=== PATIENT | female | born 1950 | race American Indian/Alaskan Native ===

== ENCOUNTER 2016-07-05 07:25 | Day surgery (SDC) | payer MEDICARE ==
[2016-07-05] MEDS ORDERED: ECOTRIN PO ONE (08:04)
[2016-07-05 08:29] LABS: Basophils % (Auto) 0.8 % (0.0-1.8); Eosinophils % (Auto) 2.2 % (0.0-4.3); Hematocrit 30.3 % (30.3-42.9); Hemoglobin 9.9 gm/dl (10.1-14.3); Mean Corpuscular HGB Conc 33 % (30-34); Mean Corpuscular Hemoglobin 29 pg (28-32); Mean Corpuscular Volume 89 fl (79-97); Platelet Count 231 K/mm3 (140-440); Red Blood Count 3.39 M/mm3 (3.65-5.03); White Blood Count 4.4 K/mm3 (4.5-11.0)
[2016-07-05 08:36] LABS: Red Cell Distribution Width 23.5 % (13.2-15.2)
[2016-07-05 08:38] LABS: INR 0.94 (0.87-1.13)
[2016-07-05 08:45] LABS: BUN/Creatinine Ratio 3.81; Calcium 8.7 mg/dL (8.4-10.2); Chloride 94.3 mmol/L (98-107); Potassium 4.2 mmol/L (3.6-5.0)
[2016-07-05] MEDS ORDERED: NACL 0.9% 500 ML 500 ML IV SCH (09:00)
[2016-07-05] MEDS ORDERED: VERSED ONE (09:03)
[2016-07-05] MEDS ORDERED: HEPARIN/NS 5000 UNIT/500ML(CATH LAB) 1,000 ML IR ONE (09:03)
[2016-07-05] MEDS ORDERED: SUBLIMAZE ONE (09:04)
[2016-07-05] MEDS ORDERED: XYLOCAINE 2% INFILTRATI ONE (09:04)
[2016-07-05] MEDS ORDERED: HEPARIN 10,000 UNITS/10 ML ONE (09:16)
[2016-07-05] MEDS ORDERED: CALAN ONE (09:16)
[2016-07-05] MEDS ORDERED: NITROGLYCERIN SYRINGE 3 ML ONE (09:17)
--- NOTE | 2016-07-05 09:44 | Short Stay Summary ---
Short Stay Documentation Date of service: 07/05/16 - History H&P: obtained from office - Allergies and Medications Current Medications: Allergies epoetin randi Allergy (Verified 07/05/16 08:45) Rash Home Medications Medication Instructions Recorded Confirmed Last Taken Type Aspirin [Ecotrin] 81 mg PO DAILY 07/06/13 07/05/16 07/04/16 History 81mg Insulin Glargine,Hum.rec.anlog 30 unit SQ QHS 07/06/13 07/05/16 07/02/16 History [Lantus Solostar] 30units Metoprolol [Lopressor] 50 mg PO BID 07/06/13 07/05/16 07/04/16 History 50mg Sevelamer Carbonate [Renvela] 800 mg PO TIDWM 07/06/13 07/05/16 07/04/16 History 800mg AtorvaSTATin [Lipitor] 40 mg PO HS 07/05/16 07/05/16 07/04/16 History 40mg Calcitriol [Rocaltrol] 1 mcg PO QDAY 07/05/16 07/05/16 07/04/16 History 1mcg Ferrous Sulfate [Slow Release Iron 65 mg PO DAILY 07/05/16 07/05/16 07/04/16 History 47.5 Mg tab] 65mg NIFEdipine [Nifedipine ER] 60 mg PO DAILY 07/05/16 07/05/16 07/04/16 History 60mg Torsemide [Torsemide] 20 mg PO DAILY 07/05/16 07/05/16 07/04/16 History 20mg Valsartan [Valsartan] 160 mg PO DAILY 07/05/16 07/05/16 07/04/16 History 160mg Vit B Cmplx 3/FA/Vit C/Biotin 1 tab PO DAILY 07/05/16 07/05/16 07/04/16 History [Nephro-Doreen Rx Tablet] 1 tab Vit D3 & K/Berberine HCl/Hops 1 tab PO DAILY 07/05/16 07/05/16 07/04/16 History [Ostera Tablet] 1 tab Active Medications Sodium Chloride (Nacl 0.9% 500 Ml) 500 mls @ 50 mls/hr IV DIRECT MELINDA Stop: 07/05/16 18:59 Last Admin: 07/05/16 08:36 Dose: 50 mls/hr - Physical exam General appearance: no acute distress Integumentary: no rash HEENT: Atraumatic Lungs: Clear to auscultation Breasts: deferred Heart: Regular rate Gastrointestinal: normal Female Genitourinary: deferred Rectal Exam: deferred Extremities: no ischemia Neurological: Normal gait - Brief post op/procedure progress note Date of procedure: 07/05/16 Pre-op diagnosis: Stable angina Post-op diagnosis: same Procedure: LHC only Anesthesia: MAC Findings: Non-obstructive CAD Surgeon: BAYLEE JENSEN Estimated blood loss: none Pathology: none Condition: stable - Hospital course Hospital course: Uneventful - Disposition Condition at discharge: Good Disposition: DISCHARGED TO HOME OR SELFCARE Short Stay Discharge Plan Activity: advance as tolerated Weight Bearing Status: Partial Weight Bearing Diet: low fat, low cholesterol, low salt, diabetic
[2016-07-05 11:41] VITALS: BP 148/79
--- NOTE | 2016-07-05 20:46 | Cardiac Catherization Report ---
LEFT HEART CATHETERIZATION ORDERING PHYSICIAN: Mayte Laura MD INDICATION FOR PROCEDURE: Abnormal myocardial perfusion scan, stable angina. PROCEDURES PERFORMED: 1. Selective left and right coronary angiography. 2. Left ventriculogram was not performed. DESCRIPTION OF PROCEDURE: After obtaining written consent and after documenting a negative Edward's test, the patient was draped using sterile technique. A 2% lidocaine was injected into the right wrist. A 5-Mal[place]ian vascular sheath was inserted into the right radial artery. A 5-[place] JL3.5 catheter was used to selectively engage the left coronary artery. A 5-[place] JR4 catheter was used to selectively engage the right coronary artery. Left ventriculogram was not performed due to the extreme tortuosity noted in the ascending thoracic aorta. No complications occurred during the procedure. Hemostasis was achieved at the end of the procedure using manual pressure. ESTIMATED BLOOD LOSS: Minimal. SPECIMEN REMOVED: None. FINDINGS: HEMODYNAMICS: Aortic pressure was 141/83. CARDIAC STRUCTURES: The left ventriculogram was not performed due to the extreme tortuosity encountered in the ascending thoracic aorta. CORONARY ANATOMY: 1. The left main is angiographically normal. 2. The LAD has mild nonobstructive luminal irregularities with 25-50% luminal stenosis. 3. The left circumflex artery has moderate nonobstructive luminal irregularities with 25-50% luminal stenosis. 4. The right coronary artery has mild to moderate nonobstructive luminal irregularities with 25-50% luminal stenosis. IMPRESSION: 1. Nonobstructive coronary artery disease with 25-50% luminal stenosis involving the LAD, left circumflex artery as well as the right coronary artery. 2. The left ventriculogram was not performed due to the extreme tortuosity encountered in ascending thoracic aorta. RECOMMENDATIONS: Continue current medical therapy and risk factor modification. JOB# [id number] NAIN/COLE
== END 2016-07-05 12:00 | disposition home or self-care (01) ==
LOC: OPU 07:25
PROVIDERS: ATTEND Internal Medicine
DX: I25.118 Atherosclerotic heart disease of native coronary artery with other forms of angina pectoris (principal); I27.2 Other secondary pulmonary hypertension; I11.0 Hypertensive heart disease with heart failure; I50.9 Heart failure, unspecified; E78.5 Hyperlipidemia, unspecified; E11.22 Type 2 diabetes mellitus with diabetic chronic kidney disease; I12.0 Hypertensive chronic kidney disease with stage 5 chronic kidney disease or end stage renal disease; N18.5 Chronic kidney disease, stage 5; Z99.2 Dependence on renal dialysis; Z98.890 Other specified postprocedural states
CPT/HCPCS: 36415; 80048; 82962; 85025; 85610; 85730; 93005; 93010; 93458; C1769; C1894; J1644; J2250; J3010; J7040; Q9967

== ENCOUNTER 2017-08-21 18:09 | Emergency (ER) | payer MEDICARE ==
--- NOTE | 2017-08-21 20:35 | Emergency Department Report ---
Blank Doc - Documentation Documentation: Patient is a 67-year-old black female who is presenting with 2 weeks of cough cold congestion. Patient states his dry cough. Patient denies any fever nausea vomiting diarrhea or body aches this time. Patient states she is not a smoker. X-ray chest be ordered to rule out atypical pneumonia.
--- NOTE | 2017-08-21 22:22 | XRay Report ---
FINAL REPORT EXAM: XR CHEST ROUTINE 2V HISTORY: cough TECHNIQUE: Two view chest PA and lateral PRIORS: None. FINDINGS: Cardiac and mediastinal contours are unremarkable. No focal pulmonary infiltrate is identified. No pleural fluid collection seen. Pulmonary vasculature is unremarkable. IMPRESSION: Negative two-view chest
--- NOTE | 2017-08-21 23:47 | Emergency Department Report ---
HPI - General Chief Complaint: Upper Respiratory Infection Time Seen by Provider: 08/21/17 20:34 - HPI HPI: Patient is a 67-year-old black female with a past medical history of end-stage renal disease that does peritoneal dialysis who is presenting with 2 weeks of cough cold congestion. Patient states his dry cough. Patient denies any fever nausea vomiting diarrhea or body aches this time. Patient states she is not a smoker. ED Past Medical Hx - Past Medical History Hx Hypertension: Yes Hx Congestive Heart Failure: Yes Hx Diabetes: Yes Hx Renal Disease: Yes (Renal failure) Additional medical history: ?heart condition. AFIB. PSVT - Surgical History Additional Surgical History: Peritoneal dialysis - Social History Smoking Status: Never Smoker Substance Use Type: None - Medications Home Medications: Home Medications Medication Instructions Recorded Confirmed Last Taken Type Aspirin [Aspirin Enteric Coated] 81 mg PO DAILY 07/06/13 07/05/16 07/04/16 History 81mg Insulin Glargine,Hum.rec.anlog 30 unit SQ QHS 07/06/13 07/05/16 07/02/16 History [Lantus Solostar] 30units Metoprolol [Lopressor TAB] 50 mg PO BID 07/06/13 07/05/16 07/04/16 History 50mg Sevelamer Carbonate [Renvela] 800 mg PO TIDWM 07/06/13 07/05/16 07/04/16 History 800mg AtorvaSTATin [Lipitor] 40 mg PO HS 07/05/16 07/05/16 07/04/16 History 40mg Calcitriol [Rocaltrol] 1 mcg PO QDAY 07/05/16 07/05/16 07/04/16 History 1mcg Ferrous Sulfate [Slow Release Iron 65 mg PO DAILY 07/05/16 07/05/16 07/04/16 History 47.5 Mg tab] 65mg NIFEdipine [Nifedipine ER] 60 mg PO DAILY 07/05/16 07/05/16 07/04/16 History 60mg Torsemide 20 mg PO DAILY 07/05/16 07/05/16 07/04/16 History 20mg Valsartan 160 mg PO DAILY 07/05/16 07/05/16 07/04/16 History 160mg Vit B Comp No.3/Folic/C/Biotin 1 tab PO DAILY 07/05/16 07/05/16 07/04/16 History [Nephro-Doreen Rx Tablet] 1 tab Vit D3-Vit K/Berberine/Hops 1 tab PO DAILY 07/05/16 07/05/16 07/04/16 History [Ostera Tablet] 1 tab Benzonatate [Tessalon Perles] 100 mg PO Q8HR PRN #30 capsule 08/21/17 Unknown Rx ED Review of Systems ROS: Stated complaint: CONGESTION Other details as noted in HPI Constitutional: denies: chills, fever Eyes: denies: eye pain, eye discharge, vision change ENT: denies: ear pain, throat pain Respiratory: cough (dry) Cardiovascular: denies: chest pain, palpitations Endocrine: no symptoms reported Gastrointestinal: denies: abdominal pain, nausea, diarrhea Genitourinary: denies: urgency, dysuria, discharge Musculoskeletal: denies: back pain, joint swelling, arthralgia Skin: denies: rash, lesions Neurological: denies: headache, weakness, paresthesias Psychiatric: denies: anxiety, depression Hematological/Lymphatic: denies: easy bleeding, easy bruising Physical Exam - Physical Exam Vital Signs: Vital Signs 08/21/17 18:29 Temperature 99.3 F Pulse Rate 98 H Respiratory 18 Rate Blood Pressure 139/75 O2 Sat by Pulse 98 Oximetry Physical Exam: GENERAL: Alert and oriented x3, no apparent distress, Normal Gait, atraumatic. HEAD: Head is normocephalic and a-traumatic. EYES: Extra ocular muscles are intact. Pupils are equal, round, and reactive to light and accommodation. EARS: symetrical, atraumatic, non tender, ear canal clear and moderate cerumen, tympanic membrance non inflamed. gross auditory nml bilaterally. NOSE: Nose symetrical, Nontender,Nares appeared normal. MOUTH:Mouth is well hydrated and without lesions. Tonsils nonerythematous or swollen, Uvula midline, Tongue not elevated. Mucous membranes are moist. Posterior pharynx clear, no exudate or lesions. Patent airways. NECK: Supple. Non edematous, No carotid bruits. No lymphadenopathy or thyromegaly. LUNGS: Symetrical with respiration, No wheezing, no rales or crackles, CTAB. HEART: S1, S2 present, regular rate and rhythm without murmur, no rubs, no gallops. ABDOMEN: No organomegaly was noted,Positive bowel sounds, soft, and non- distended. . Nontender to palpation on all Quadrants, NEUROLOGIC: No focal Deficit, Cranial nerves II through XII are grossly intact. No loss of sensation, No facial droop, PSYCHIATRIC: Mood is congruent with affect, denies suicidal or homicidal ideations. SKIN: Warm and dry, No lesions, No ulceration or induration present ED Course Vital Signs 08/21/17 18:29 Temperature 99.3 F Pulse Rate 98 H Respiratory 18 Rate Blood Pressure 139/75 O2 Sat by Pulse 98 Oximetry ED Medical Decision Making - Medical Decision Making Patient's been evaluated by this provider as well as Dr. Weber. Chest x-ray was ordered and completed with no active cardiopulmonary disease. Constipation place her on Tessalon Perles. Also discussed the patient to follow up with her financial planning adviser next 24-48 hours. SHe verbalized understanding. Critical care attestation.: If time is entered above; I have spent that time in minutes in the direct care of this critically ill patient, excluding procedure time. ED Disposition Clinical Impression: Cough Disposition: DC-01 TO HOME OR SELFCARE Is pt being admited?: No Does the pt Need Aspirin: No Condition: Stable Instructions: Antitussives (By mouth) Additional Instructions: Please continue all chronic medication. Take cough medication as needed. Follow up with the her financial planning adviser in the next 24-48 hours. Prescriptions: Benzonatate [Tessalon Perles] 100 mg PO Q8HR PRN #30 capsule PRN Reason: Cough Referrals: WHITNEY MANN MD [Primary Care Provider] - 3-5 Days CORNELIA YANG MD [Referring] - 3-5 Days CLARIBEL YANG MD [Referring] - 3-5 Days
[2017-08-22 00:13] VITALS: BP 151/81
== END 2017-08-21 23:55 | disposition home or self-care (01) ==
LOC: ED 18:09
DX: R05 Cough (principal); E11.22 Type 2 diabetes mellitus with diabetic chronic kidney disease; I12.0 Hypertensive chronic kidney disease with stage 5 chronic kidney disease or end stage renal disease; N18.6 End stage renal disease; I50.9 Heart failure, unspecified; Z99.2 Dependence on renal dialysis; Z88.8 Allergy status to other drugs, medicaments and biological substances
CPT/HCPCS: 71046

== ENCOUNTER 2018-02-21 13:06 | Emergency (ER) | payer MEDICARE ==
[2018-02-21] MEDS ORDERED: CATAPRES PO ONE (13:40)
[2018-02-21] MEDS ORDERED: CATAPRES ONE (13:42)
--- NOTE | 2018-02-21 14:01 | XRay Report ---
AP CHEST: HISTORY: Hypertension, palpitations Mild cardiomegaly and borderline pulmonary venous congestion are identified which appear to be new since 08/21/17. The lungs are clear. No evidence for pneumonia, pleural effusion or pneumothorax. IMPRESSION: Mild cardiomegaly and pulmonary venous congestion.
[2018-02-21 14:17] LABS: Basophils % (Auto) 0.7 % (0.0-1.8); Eosinophils # (Auto) 0.1 K/mm3 (0.0-0.4); Eosinophils % (Auto) 2.2 % (0.0-4.3); Hematocrit 35.6 % (30.3-42.9); Hemoglobin 11.8 gm/dl (10.1-14.3); Lymphocytes # (Auto) 0.9 K/mm3 (1.2-5.4); Lymphocytes % (Auto) 15.8 % (13.4-35.0); Mean Corpuscular HGB Conc 33 % (30-34); Mean Corpuscular Hemoglobin 30 pg (28-32); Mean Corpuscular Volume 90 fl (79-97); Monocytes # (Auto) 0.7 K/mm3 (0.0-0.8); Monocytes % (Auto) 11.6 % (0.0-7.3); Platelet Count 308 K/mm3 (140-440); Red Blood Count 3.97 M/mm3 (3.65-5.03); Red Cell Distribution Width 19.1 % (13.2-15.2)
[2018-02-21 14:37] LABS: Albumin 3.2 g/dL (3.9-5); Calcium 9.5 mg/dL (8.4-10.2)
--- NOTE | 2018-02-21 15:06 | Cat Scan Report ---
CT HEAD WITHOUT CONTRAST: HISTORY: Hypertension. TECHNIQUE: Sequential 2.5mm CT images. COMPARISON: none. FINDINGS: Cerebral Parenchyma: Within normal limits. Cerebellum: Within normal limits. Brainstem: Within normal limits. Ventricles: Normal. Sella: Normal. Extra-axial spaces: Normal. Basal Cisterns: Normal. Intracranial Hemorrhage: None. Midline Shift: None. Calvarium: Normal. Sinuses: Normal. Mastoid Air Cells: Normal. Visualized Orbits: Normal. IMPRESSION: Cranial CT scan within normal limits.
--- NOTE | 2018-02-21 16:29 | Emergency Department Report ---
ED General Adult HPI - General Chief complaint: High BP Stated complaint: HEART RATE/HEART BEATING FAST Time Seen by Provider: 02/21/18 13:51 Source: patient, RN notes reviewed, old records reviewed Mode of arrival: Ambulatory Limitations: No Limitations - History of Present Illness Initial comments: This is a 67-year-old female who presents to the ER with a complaint of requesting medical clearance for elevated blood pressure. She reports that she saw her primary care doctor recently, and was prescribed as needed clonidine. She also has a history of hypertension and peritoneal dialysis. She denies chest pain, shortness of breath, abdominal pain, weakness, numbness, unsteady gait. She reports that earlier on this morning, she had a headache which was mild, left-sided, not sudden or thunderclap in nature and not maximal in intensity. It is not the worse headache of her life, and it has now resolved. She has no complaints at this time. She reports her blood pressure had a systolic of 228 prior to evaluation -: Gradual Location: head Consistency: now resolved Improves with: none Worsens with: none Associated Symptoms: denies other symptoms - Related Data Home Medications Medication Instructions Recorded Confirmed Last Taken Aspirin [Aspirin Enteric Coated] 81 mg PO DAILY 07/06/13 02/21/18 07/04/16 81mg Insulin Glargine,Hum.rec.anlog 30 unit SQ QHS 07/06/13 02/21/18 02/20/18 21:00 [Lantus Solostar] 30 units Metoprolol [Lopressor TAB] 50 mg PO BID 07/06/13 02/21/18 07/04/16 50mg Sevelamer Carbonate [Renvela] 800 mg PO TIDWM 07/06/13 02/21/18 07/04/16 800mg AtorvaSTATin [Lipitor] 40 mg PO HS 07/05/16 02/21/18 02/20/18 21:00 40mg Calcitriol [Rocaltrol] 0.5 mcg PO QDAY 07/05/16 02/21/18 07/04/16 1mcg Ferrous Sulfate [Slow Release Iron 65 mg PO DAILY 07/05/16 02/21/18 07/04/16 47.5 Mg tab] 65mg NIFEdipine [Nifedipine ER] 60 mg PO BID 07/05/16 02/21/18 07/04/16 60mg Torsemide 40 mg PO DAILY 07/05/16 02/21/18 07/04/16 20mg Ascorbic Acid [Vitamin C] 500 mg PO DAILY 02/21/18 02/21/18 Unknown Famotidine 20 mg PO QHS 02/21/18 02/21/18 Unknown ISOSORBIDE MONOnitrate [Imdur ER] 60 mg PO DAILY 02/21/18 02/21/18 Unknown Lisinopril 40 mg PO DAILY 02/21/18 02/21/18 Unknown Vit B Comp No.3/Folic/C/Biotin 1 tab PO DAILY 02/21/18 02/21/18 Unknown [Nephro-Doreen Rx Tablet] Previous Rx's Medication Instructions Recorded Last Taken Type Benzonatate [Tessalon Perles] 100 mg PO Q8HR PRN #30 capsule 08/21/17 Unknown Rx Allergies Allergy/AdvReac Type Severity Reaction Status Date / Time epoetin randi Allergy Rash Verified 07/05/16 08:45 ED Review of Systems ROS: Stated complaint: HEART RATE/HEART BEATING FAST Other details as noted in HPI Comment: All other systems reviewed and negative ED Past Medical Hx - Past Medical History Previous Medical History?: Yes Hx Hypertension: Yes Hx Congestive Heart Failure: Yes Hx Diabetes: Yes Hx Renal Disease: Yes (Renal failure, peritoneal diaylsis) Additional medical history: ?heart condition. AFIB. PSVT - Surgical History Past Surgical History?: Yes Additional Surgical History: Peritoneal dialysis. right breast surgery, benign lump removal - Social History Smoking Status: Never Smoker Substance Use Type: None - Medications Home Medications: Home Medications Medication Instructions Recorded Confirmed Last Taken Type Aspirin [Aspirin Enteric Coated] 81 mg PO DAILY 07/06/13 02/21/18 07/04/16 History 81mg Insulin Glargine,Hum.rec.anlog 30 unit SQ QHS 07/06/13 02/21/18 02/20/18 21:00 History [Lantus Solostar] 30 units Metoprolol [Lopressor TAB] 50 mg PO BID 07/06/13 02/21/18 07/04/16 History 50mg Sevelamer Carbonate [Renvela] 800 mg PO TIDWM 07/06/13 02/21/18 07/04/16 History 800mg AtorvaSTATin [Lipitor] 40 mg PO HS 07/05/16 02/21/18 02/20/18 21:00 History 40mg Calcitriol [Rocaltrol] 0.5 mcg PO QDAY 07/05/16 02/21/18 07/04/16 History 1mcg Ferrous Sulfate [Slow Release Iron 65 mg PO DAILY 07/05/16 02/21/18 07/04/16 History 47.5 Mg tab] 65mg NIFEdipine [Nifedipine ER] 60 mg PO BID 07/05/16 02/21/18 07/04/16 History 60mg Torsemide 40 mg PO DAILY 07/05/16 02/21/18 07/04/16 History 20mg Benzonatate [Tessalon Perles] 100 mg PO Q8HR PRN #30 capsule 08/21/17 02/21/18 Unknown Rx Ascorbic Acid [Vitamin C] 500 mg PO DAILY 02/21/18 02/21/18 Unknown History Famotidine 20 mg PO QHS 02/21/18 02/21/18 Unknown History ISOSORBIDE MONOnitrate [Imdur ER] 60 mg PO DAILY 02/21/18 02/21/18 Unknown History Lisinopril 40 mg PO DAILY 02/21/18 02/21/18 Unknown History Vit B Comp No.3/Folic/C/Biotin 1 tab PO DAILY 02/21/18 02/21/18 Unknown History [Nephro-Doreen Rx Tablet] ED Physical Exam - General Limitations: No Limitations General appearance: alert, in no apparent distress - Head Head exam: Present: atraumatic, normocephalic - Eye Eye exam: Present: normal appearance, EOMI. Absent: nystagmus - ENT ENT exam: Present: normal exam, normal orophraynx, mucous membranes moist, normal external ear exam - Neck Neck exam: Present: normal inspection, full ROM. Absent: tenderness, meningismus - Respiratory Respiratory exam: Present: normal lung sounds bilaterally. Absent: respiratory distress - Cardiovascular Cardiovascular Exam: Present: regular rate, normal rhythm, normal heart sounds. Absent: bradycardia, tachycardia, systolic murmur, diastolic murmur, rubs, gallop - GI/Abdominal GI/Abdominal exam: Present: soft, other (a peritoneal dialysis access catheter is noted, with no tenderness, redness, pus or streaking). Absent: distended, tenderness, guarding, rebound, rigid, pulsatile mass - Extremities Exam Extremities exam: Present: normal inspection, full ROM, other (2+ pulses noted in the bilateral upper, lower extremities. Compartments soft. No long bony tenderness. The pelvis is stable.). Absent: tenderness, joint swelling, calf tenderness - Back Exam Back exam: Present: normal inspection, full ROM. Absent: tenderness, CVA tenderness (R), paraspinal tenderness, vertebral tenderness - Neurological Exam Neurological exam: Present: alert, oriented X3, CN II-XII intact, normal gait, other (Extraocular movements intact. Tongue midline. No facial droop. Facial sensation intact to light touch in the V1, V2, V3 distribution bilaterally. 5 and 5 strength in 4 extremities.. Sensation is intact to light touch in 4 extremities.). Absent: motor sensory deficit - Psychiatric Psychiatric exam: Present: normal affect, normal mood - Skin Skin exam: Present: warm, dry, intact, normal color. Absent: rash ED Course Vital Signs 02/21/18 02/21/18 02/21/18 13:30 13:40 14:08 Temperature 98 F Pulse Rate 77 77 Respiratory 18 Rate Blood Pressure 228/101 228/101 O2 Sat by Pulse 99 97 Oximetry 02/21/18 02/21/18 14:16 14:30 Temperature Pulse Rate 67 62 Respiratory 17 17 Rate Blood Pressure 177/83 O2 Sat by Pulse 99 95 Oximetry ED Medical Decision Making - Lab Data Result diagrams: 02/21/18 13:54 02/21/18 13:54 Vital Signs 02/21/18 02/21/18 02/21/18 13:30 13:40 14:08 Temperature 98 F Pulse Rate 77 77 Respiratory 18 Rate Blood Pressure 228/101 228/101 O2 Sat by Pulse 99 97 Oximetry 02/21/18 02/21/18 14:16 14:30 Temperature Pulse Rate 67 62 Respiratory 17 17 Rate Blood Pressure 177/83 O2 Sat by Pulse 99 95 Oximetry Lab Results 02/21/18 02/21/18 Range/Units 13:54 13:54 WBC 5.8 (4.5-11.0) K/mm3 RBC 3.97 (3.65-5.03) M/mm3 Hgb 11.8 (10.1-14.3) gm/dl Hct 35.6 (30.3-42.9) % MCV 90 (79-97) fl MCH 30 (28-32) pg MCHC 33 (30-34) % RDW 19.1 H (13.2-15.2) % Plt Count 308 (140-440) K/mm3 Lymph % (Auto) 15.8 (13.4-35.0) % [place] % (Auto) 11.6 H (0.0-7.3) % Eos % (Auto) 2.2 (0.0-4.3) % Baso % (Auto) 0.7 (0.0-1.8) % Lymph # 0.9 L (1.2-5.4) K/mm3 [place] # 0.7 (0.0-0.8) K/mm3 Eos # 0.1 (0.0-0.4) K/mm3 Baso # 0.0 (0.0-0.1) K/mm3 Seg Neutrophils % 69.7 (40.0-70.0) % Seg Neutrophils # 4.0 (1.8-7.7) K/mm3 Sodium 133 L (137-145) mmol/L Potassium 3.2 L (3.6-5.0) mmol/L Chloride 88.3 L (98-107) mmol/L Carbon Dioxide 26 (22-30) mmol/L Anion Gap 22 mmol/L BUN 38 H (7-17) mg/dL Creatinine 15.4 H (0.7-1.2) mg/dL Estimated GFR 3 ml/min BUN/Creatinine Ratio 2 % Glucose 200 H (65-100) mg/dL Calcium 9.5 (8.4-10.2) mg/dL Total Bilirubin 0.20 (0.1-1.2) mg/dL AST 38 (5-40) units/L ALT 22 (7-56) units/L Alkaline Phosphatase 66 (35-129) units/L Total Protein 6.6 (6.3-8.2) g/dL Albumin 3.2 L (3.9-5) g/dL Albumin/Globulin Ratio 0.9 % - EKG Data When compared to previous EKG there are: no significant change 02/21/18 16:27 Sinus, 68 bpm, borderline left axis deviation, low voltage, QTC prolonged, abnormal EKG, not a stemi , grossly unchanged from prior EKG from 07/05/2016. - Radiology Data Radiology results: report reviewed, image reviewed X-ray of the chest is negative for acute disease, chronic pulmonary vascular congestion noted, noncontrast CT scan of the brain is negative for acute disease - Medical Decision Making Differential diagnosis, including but not limited to: Migraine headache, tension headache, cluster headache, hypertension, chronic renal insufficiency on peritoneal dialysis assessment and plan: 67-year-old female with resolved headache, GCS of 15, with an NIH score of 0, normal neurologic examination, with incidental hypertension/ elevated blood pressure. Laboratory studies are at what we would expect given her chronic renal insufficiency. Her hypertension is appreciated, please reference the [employer] clinical policy of hypertension that is not acutely symptomatic. The patient does not require acute decrease of her blood pressure in the emergency room, she is medically suitable to follow up with her outpatient primary care doctor and rental management trainee for further outpatient evaluation and management. Critical care attestation.: If time is entered above; I have spent that time in minutes in the direct care of this critically ill patient, excluding procedure time. ED Disposition Clinical Impression: History of headache, Hypertension Disposition: TO HOME OR SELFCARE Is pt being admited?: No Does the pt Need Aspirin: No Condition: Good Instructions: Hypertension (ED) Additional Instructions: Continue current outpatient medications. Follow up with her primary care doctor or rental management trainee within the next 3-4 weeks for repeat checkup/evaluation for elevated blood pressure. Return to the ER right away with new pain, worsened pain, migration of pain, projectile vomiting, change in mental status, confusion, inability to tolerate liquid feeds. Referrals: MIGUEL A ROLLINS MD [Primary Care Provider] - 3-5 Days [facility] [Provider Group] - 3-5 Days TERESA VARGAS MD [Staff Physician] - 3-5 Days
[2018-02-21 16:37] VITALS: BP 149/98
== END 2018-02-21 16:47 | disposition home or self-care (01) ==
LOC: ED 13:06
DX: I10 Essential (primary) hypertension (principal); R51 Headache; E11.9 Type 2 diabetes mellitus without complications; I50.9 Heart failure, unspecified; Z79.82 Long term (current) use of aspirin; Z79.4 Long term (current) use of insulin; Z88.8 Allergy status to other drugs, medicaments and biological substances
CPT/HCPCS: 36415; 70450; 71045; 80053; 85025; 93005; 93010

== ENCOUNTER 2018-08-30 14:21 | Inpatient (IN) | payer MEDICARE ==
--- NOTE | 2018-08-30 15:19 | Emergency Department Report ---
Blank Doc - Documentation Documentation: I evaluated this patient on the fast track side at first. While she does not appear to be in any acute distress, she has some purulent discharge coming from the peritoneal dialysis site. There is also some surrounding redness and some tenderness to palpation. She has end-stage renal disease with hypertension. Currently afebrile. However I believe this is a workup that is better suited for the main emergency department versus the fast track side.
[2018-08-30] MEDS ORDERED: ROCEPHIN/NS 1 GM/50 ML 1 GM/50 ML BAG IV ONE (17:01)
--- NOTE | 2018-08-30 17:08 | Emergency Department Report ---
ED General Adult HPI - General Chief complaint: Medical Clearance Stated complaint: TUBE ISSUES Time Seen by Provider: 08/30/18 16:52 Source: patient, RN notes reviewed, old records reviewed Mode of arrival: Ambulatory Limitations: No Limitations - History of Present Illness Initial comments: This is a 68-year-old female. She has a past medical history of peritoneal dialysis, on likely dialysis. She also has a history of diabetes and hypertension. Her last peritoneal dialysis session was last night. Her dental professional is Dr. Alba The patient subjectively feels that she is euvolemic, and presents to the emergency room today with a complaint of nontraumatic redness, pus, and warmth around her peritoneal dialysis access catheter site. The symptoms have been constant since 1 day, do not radiate anywhere, do not have exacerbating or relieving factors. The patient denies other complaints. -: days(s) (1) Location: abdomen Radiation: non-radiation Severity scale (0 -10): 6 Consistency: constant Improves with: none Worsens with: none Associated Symptoms: denies other symptoms, rash - Related Data Home Medications Medication Instructions Recorded Confirmed Last Taken Aspirin [Aspirin Enteric Coated] 81 mg PO DAILY 07/06/13 02/21/18 07/04/16 81mg Insulin Glargine,Hum.rec.anlog 30 unit SQ QHS 07/06/13 02/21/18 02/20/18 21:00 [Lantus Solostar] 30 units Metoprolol [Lopressor TAB] 50 mg PO BID 07/06/13 02/21/18 07/04/16 50mg Sevelamer Carbonate [Renvela] 800 mg PO TIDWM 07/06/13 02/21/18 07/04/16 800mg AtorvaSTATin [Lipitor] 40 mg PO HS 07/05/16 02/21/18 02/20/18 21:00 40mg Calcitriol [Rocaltrol] 0.5 mcg PO QDAY 07/05/16 02/21/18 07/04/16 1mcg Ferrous Sulfate [Slow Release Iron 65 mg PO DAILY 07/05/16 02/21/18 07/04/16 47.5 Mg tab] 65mg NIFEdipine [Nifedipine ER] 60 mg PO BID 07/05/16 02/21/18 07/04/16 60mg Torsemide 40 mg PO DAILY 07/05/16 02/21/18 07/04/16 20mg Ascorbic Acid [Vitamin C] 500 mg PO DAILY 02/21/18 02/21/18 Unknown Famotidine 20 mg PO QHS 02/21/18 02/21/18 Unknown ISOSORBIDE MONOnitrate [Imdur ER] 60 mg PO DAILY 02/21/18 02/21/18 Unknown Lisinopril 40 mg PO DAILY 02/21/18 02/21/18 Unknown Vit B Comp No.3/Folic/C/Biotin 1 tab PO DAILY 02/21/18 02/21/18 Unknown [Nephro-Doreen Rx Tablet] Previous Rx's Medication Instructions Recorded Last Taken Type Benzonatate [Tessalon Perles] 100 mg PO Q8HR PRN #30 capsule 08/21/17 Unknown Rx Clindamycin [Clindamycin CAP] 300 mg PO Q8H 7 Days #21 cap 06/14/18 Unknown Rx Allergies Allergy/AdvReac Type Severity Reaction Status Date / Time epoetin randi Allergy Rash Verified 06/14/18 12:02 ED Review of Systems ROS: Stated complaint: TUBE ISSUES Other details as noted in HPI Constitutional: denies: fever, malaise ENT: denies: epistaxis Respiratory: denies: cough Cardiovascular: denies: chest pain Gastrointestinal: denies: nausea, vomiting, diarrhea Genitourinary: denies: dysuria Skin: rash, lesions Neurological: denies: weakness Psychiatric: denies: anxiety ED Past Medical Hx - Past Medical History Previous Medical History?: Yes Hx Hypertension: Yes Hx Congestive Heart Failure: Yes Hx Diabetes: Yes Hx Renal Disease: Yes (Renal failure, peritoneal diaylsis) Additional medical history: ?heart condition. AFIB. PSVT - Surgical History Past Surgical History?: Yes Additional Surgical History: Peritoneal dialysis. right breast surgery, benign lump removal - Social History Smoking Status: Never Smoker Substance Use Type: None - Medications Home Medications: Home Medications Medication Instructions Recorded Confirmed Last Taken Type Aspirin [Aspirin Enteric Coated] 81 mg PO DAILY 07/06/13 02/21/18 07/04/16 History 81mg Insulin Glargine,Hum.rec.anlog 30 unit SQ QHS 07/06/13 02/21/18 02/20/18 21:00 History [Lantus Solostar] 30 units Metoprolol [Lopressor TAB] 50 mg PO BID 07/06/13 02/21/18 07/04/16 History 50mg Sevelamer Carbonate [Renvela] 800 mg PO TIDWM 07/06/13 02/21/18 07/04/16 History 800mg AtorvaSTATin [Lipitor] 40 mg PO HS 07/05/16 02/21/18 02/20/18 21:00 History 40mg Calcitriol [Rocaltrol] 0.5 mcg PO QDAY 07/05/16 02/21/18 07/04/16 History 1mcg Ferrous Sulfate [Slow Release Iron 65 mg PO DAILY 07/05/16 02/21/18 07/04/16 History 47.5 Mg tab] 65mg NIFEdipine [Nifedipine ER] 60 mg PO BID 07/05/16 02/21/18 07/04/16 History 60mg Torsemide 40 mg PO DAILY 07/05/16 02/21/18 07/04/16 History 20mg Benzonatate [Tessalon Perles] 100 mg PO Q8HR PRN #30 capsule 08/21/17 02/21/18 Unknown Rx Ascorbic Acid [Vitamin C] 500 mg PO DAILY 02/21/18 02/21/18 Unknown History Famotidine 20 mg PO QHS 02/21/18 02/21/18 Unknown History ISOSORBIDE MONOnitrate [Imdur ER] 60 mg PO DAILY 02/21/18 02/21/18 Unknown History Lisinopril 40 mg PO DAILY 02/21/18 02/21/18 Unknown History Vit B Comp No.3/Folic/C/Biotin 1 tab PO DAILY 02/21/18 02/21/18 Unknown History [Nephro-Doreen Rx Tablet] Clindamycin [Clindamycin CAP] 300 mg PO Q8H 7 Days #21 cap 06/14/18 Unknown Rx ED Physical Exam - General Limitations: No Limitations General appearance: alert, in no apparent distress - Head Head exam: Present: atraumatic, normocephalic - Eye Eye exam: Present: normal appearance, EOMI. Absent: nystagmus - ENT ENT exam: Present: normal exam, normal orophraynx, mucous membranes moist, normal external ear exam - Neck Neck exam: Present: normal inspection, full ROM. Absent: tenderness, meningismus - Respiratory Respiratory exam: Present: normal lung sounds bilaterally. Absent: respiratory distress - Cardiovascular Cardiovascular Exam: Present: regular rate, normal rhythm, normal heart sounds. Absent: bradycardia, tachycardia, irregular rhythm, systolic murmur, diastolic murmur, rubs, gallop - GI/Abdominal GI/Abdominal exam: Present: soft, tenderness (there is erythema surrounding the peritoneal dialysis catheter site. There is puslike discharge noted. Compartment soft.). Absent: distended, guarding, rebound, pulsatile mass - Extremities Exam Extremities exam: Present: normal inspection - Back Exam Back exam: Present: normal inspection - Neurological Exam Neurological exam: Present: alert, oriented X3 - Psychiatric Psychiatric exam: Present: normal affect, normal mood - Skin Skin exam: Present: warm, dry, intact, normal color. Absent: rash ED Course Vital Signs 08/30/18 08/30/18 08/30/18 14:34 16:31 16:38 Temperature 97.5 F L Pulse Rate 80 Respiratory 18 18 Rate Blood Pressure 179/86 O2 Sat by Pulse 99 100 99 Oximetry 08/30/18 08/30/18 08/30/18 16:45 17:00 17:15 Temperature Pulse Rate 63 66 60 Respiratory 13 13 18 Rate Blood Pressure 222/107 198/102 198/102 O2 Sat by Pulse 99 98 99 Oximetry 08/30/18 08/30/18 08/30/18 17:31 17:45 18:38 Temperature Pulse Rate 68 58 L 82 Respiratory 14 15 Rate Blood Pressure 198/102 198/102 198/82 O2 Sat by Pulse 98 99 Oximetry ED Medical Decision Making - Lab Data Result diagrams: 08/30/18 17:08 08/30/18 17:08 Vital Signs 08/30/18 08/30/18 08/30/18 14:34 16:31 16:38 Temperature 97.5 F L Pulse Rate 80 Respiratory 18 18 Rate Blood Pressure 179/86 O2 Sat by Pulse 99 100 99 Oximetry 08/30/18 08/30/18 08/30/18 16:45 17:00 17:15 Temperature Pulse Rate 63 66 60 Respiratory 13 13 18 Rate Blood Pressure 222/107 198/102 198/102 O2 Sat by Pulse 99 98 99 Oximetry 08/30/18 08/30/18 08/30/18 17:31 17:45 18:38 Temperature Pulse Rate 68 58 L 82 Respiratory 14 15 Rate Blood Pressure 198/102 198/102 198/82 O2 Sat by Pulse 98 99 Oximetry Lab Results 08/30/18 08/30/18 08/30/18 Range/Units 17:08 17:08 17:08 WBC 4.3 L (4.5-11.0) K/mm3 RBC 4.75 (3.65-5.03) M/mm3 Hgb 14.2 (10.1-14.3) gm/dl Hct 43.2 H (30.3-42.9) % MCV 91 (79-97) fl MCH 30 (28-32) pg MCHC 33 (30-34) % RDW 23.2 H (13.2-15.2) % Plt Count 313 (140-440) K/mm3 Lymph % (Auto) 19.9 (13.4-35.0) % [place] % (Auto) 13.9 H (0.0-7.3) % Eos % (Auto) 1.3 (0.0-4.3) % Baso % (Auto) 0.8 (0.0-1.8) % Lymph # 0.9 L (1.2-5.4) K/mm3 [place] # 0.6 (0.0-0.8) K/mm3 Eos # 0.1 (0.0-0.4) K/mm3 Baso # 0.0 (0.0-0.1) K/mm3 Seg Neutrophils % 64.1 (40.0-70.0) % Seg Neutrophils # 2.8 (1.8-7.7) K/mm3 Sodium 134 L (137-145) mmol/L Potassium 3.3 L (3.6-5.0) mmol/L Chloride 89.0 L (98-107) mmol/L Carbon Dioxide 26 (22-30) mmol/L Anion Gap 22 mmol/L BUN 40 H (7-17) mg/dL Creatinine 13.0 H (0.7-1.2) mg/dL Estimated GFR 3 ml/min BUN/Creatinine Ratio 3 % Glucose 425 H (65-100) mg/dL Lactic Acid 1.30 (0.7-2.0) mmol/L Calcium 9.1 (8.4-10.2) mg/dL - Radiology Data Radiology results: report reviewed, image reviewed - Medical Decision Making Differential diagnosis, including not limited to: Infected peritoneal dialysis catheter, abdominal wall cellulitis Assessment and plan: 68-year-old female with probable abdominal wall cellulitis around peritoneal dialysis catheter. The patient is afebrile, with reassuring vital signs, and in no acute distress. We have requested fluid analysis for her peritoneal fluid. Blood cultures, ascites whose cultures have been requested. She will be covered empirically with ceftriaxone and vancomycin. Discussed with general surgery, Dr Haywood ( as the general surgeon air traffic control manager Dr Diane, indicated that he did not have the expertise required to replace a PD catheter, if necessary), whose group has agreed to follow in consultation The dental professional on-call, Dr. Flores, will follow in consultation Dr Meehan to admit to the medical service Discuss admission and plan of care with the patient and family, who verbalized understanding, and were amenable to this plan of care. CT scan of the abdomen and pelvis suggests cellulitis around the peritoneal dialysis catheter, without evidence of abscess or phlegmon. Critical care attestation.: If time is entered above; I have spent that time in minutes in the direct care of this critically ill patient, excluding procedure time. ED Disposition Clinical Impression: Abdominal wall cellulitis Peritoneal dialysis catheter infection Qualifiers: Encounter type: initial encounter Qualified Code(s): T85.71XA - Infection and inflammatory reaction due to peritoneal dialysis catheter, initial encounter Disposition: 09 OP ADMIT IP TO THIS HOSP Is pt being admited?: Yes Condition: Good Referrals: BOBBY BUTLER MD [Primary Care Provider] - 3-5 Days
[2018-08-30 17:40] LABS: Basophils % (Auto) 0.8 % (0.0-1.8); Eosinophils # (Auto) 0.1 K/mm3 (0.0-0.4); Eosinophils % (Auto) 1.3 % (0.0-4.3); Hematocrit 43.2 % (30.3-42.9); Hemoglobin 14.2 gm/dl (10.1-14.3); Lymphocytes # (Auto) 0.9 K/mm3 (1.2-5.4); Lymphocytes % (Auto) 19.9 % (13.4-35.0); Mean Corpuscular HGB Conc 33 % (30-34); Mean Corpuscular Volume 91 fl (79-97); Monocytes # (Auto) 0.6 K/mm3 (0.0-0.8); Monocytes % (Auto) 13.9 % (0.0-7.3); Platelet Count 313 K/mm3 (140-440); Red Blood Count 4.75 M/mm3 (3.65-5.03)
[2018-08-30 17:53] LABS: Calcium 9.1 mg/dL (8.4-10.2)
[2018-08-30] MEDS ORDERED: VANCOMYCIN/NS 1 GM/250 ML 1 GM/250 ML BAG IV ONE (18:00)
[2018-08-30 18:03] LABS: Red Cell Distribution Width 23.2 % (13.2-15.2)
--- NOTE | 2018-08-30 18:57 | Cat Scan Report ---
PROCEDURE: CT ABDOMEN PELVIS WO CON TECHNIQUE: Computerized axial tomography of the abdomen and pelvis was performed without intravenous contrast. This study is performed without intravascular contrast material and its sensitivity for ab dominal and pelvic pathology, including neoplasms, inflammation, abscess, free fluid, thrombosis, art erial dissection and infarction, is reduced compared with a contrast enhanced study. HISTORY: infected pd catheter FINDINGS: Unenhanced CT of the abdomen and pelvis was performed and data was reformatted into the sag ittal and coronal planes. There is cardiomegaly. There is a trace pericardial effusion versus pericardial thickening. ABDOMEN: No suspect focal hepatic lesion is seen. The spleen is normal in size. The adrenal glands and pancreas are within normal limits. The gallbladder is unremarkable. The right kidney measures 8.9 cm and the left kidney 8.6 cm. Both kidneys and therefore mildly small. There are small right nonobstructing renal calculi. There is a right lower pole renal density, axial image 75, likely hemorrhagic cyst, 0.5 cm. The abdominal aorta is atherosclerotic but normal in size. There is intraperitoneal free fluid, which is likely dialysate. Pelvis: There is a normal appendix. There is no evidence of diverticulitis. There are calcified uterine leiom yomas. The urinary bladder is collapsed but is otherwise unremarkable. There is some stranding around the peritoneal dialysis catheter as it passes through the abdominal wa ll soft tissues, images 106-107. This could represent cellulitis. No abscess is seen. IMPRESSION: Abdomen: Intraperitoneal free fluid which is likely dialysate Pelvis: Stranding around peritoneal dialysis catheter as it passes through the left anterior abdomina l wall. This could represent cellulitis. This document is electronically signed by Rich Sloan MD., August 30 2018 06:55:20 PM ET
[2018-08-30] MEDS ORDERED: CATAPRES PO ONE (19:00)
[2018-08-30] MEDS ORDERED: HumuLIN R IV ONE (19:03)
[2018-08-30] MEDS ORDERED: HumuLIN R ONE (19:43)
[2018-08-31] MEDS ORDERED: TESSALON PERLES PO PRN
[2018-08-31] MEDS ORDERED: CLEOCIN PO SCH
[2018-08-31] MEDS ORDERED: SODIUM CHLORIDE FLUSH SYRINGE 10 ML IV PRN (00:04)
[2018-08-31] MEDS ORDERED: ZOFRAN IV PRN (00:04)
[2018-08-31] MEDS ORDERED: TYLENOL PO PRN (00:04)
[2018-08-31] MEDS ORDERED: DILAUDID IV PRN (00:04)
[2018-08-31] MEDS ORDERED: VANCOMYCIN/NS 1 GM/250 ML 1 GM/250 ML BAG IV SCH (01:00)
[2018-08-31] MEDS: LOPRESSOR PO SCH ×3 (01:15→22:05)
[2018-08-31] MEDS: PROCARDIA XL PO SCH ×3 (01:15→22:05)
[2018-08-31] MEDS ORDERED: VANCOMYCIN PHARMACY TO DOSE IV SCH (02:00)
[2018-08-31] MEDS ORDERED: APRESOLINE IV ONE (02:40)
[2018-08-31] MEDS ORDERED: APRESOLINE IV PRN (02:41)
[2018-08-31] MEDS: ZOSYN/NS 2.25 GM/50ML 2.25 GM/50 ML BAG IV SCH ×3 (02:47→23:57)
--- NOTE | 2018-08-31 06:02 | Consultation ---
History of Present Illness - Reason for Consult Consult date: 08/31/18 end stage renal disease, hypokalemia - History of Present Illness The patient is a 68 YO female with history significant for DM-2, HTN, HLD and ESRD on APD who presented to the ER with purulent discharge from the PD catheter exit site for the past week. Patient is a very poor historian and her daughter supplemented information. Her PD effluent is clear and denies any fever, chills, abd pain, weakness, N, V, D, cp, sob, dizziness or syncope. She was last dialyzed overnight 2 days ago. Nephrology was consulted for further evaluation and treatment. Past History Past Medical History: diabetes, dialysis, ESRD, hypertension, hyperlipidemia Medications and Allergies Allergies Allergy/AdvReac Type Severity Reaction Status Date / Time epoetin randi Allergy Rash Verified 06/14/18 12:02 Home Medications Medication Instructions Recorded Confirmed Last Taken Type Aspirin [Aspirin Enteric Coated] 81 mg PO DAILY 07/06/13 08/30/18 08/30/18 History Insulin Glargine,Hum.rec.anlog 30 unit SQ QHS 07/06/13 08/30/18 08/30/18 History [Lantus Solostar] Metoprolol [Lopressor TAB] 50 mg PO BID 07/06/13 08/30/18 08/30/18 History Sevelamer Carbonate [Renvela] 800 mg PO TIDWM 07/06/13 08/30/18 08/30/18 History AtorvaSTATin [Lipitor] 40 mg PO HS 07/05/16 08/30/18 08/30/18 History Calcitriol [Rocaltrol] 0.5 mcg PO QDAY 07/05/16 08/30/18 08/30/18 History Ferrous Sulfate [Slow Release Iron 65 mg PO DAILY 07/05/16 08/31/18 07/04/16 History 47.5 Mg tab] 65mg NIFEdipine [Nifedipine ER] 60 mg PO BID 07/05/16 08/30/18 08/30/18 History Torsemide 40 mg PO DAILY 07/05/16 08/30/18 08/30/18 History Benzonatate [Tessalon Perles] 100 mg PO Q8HR PRN #30 capsule 08/21/17 08/30/18 08/30/18 Rx Ascorbic Acid [Vitamin C] 500 mg PO DAILY 02/21/18 08/30/18 08/30/18 History Famotidine 20 mg PO QHS 02/21/18 08/30/18 08/30/18 History ISOSORBIDE MONOnitrate [Imdur ER] 60 mg PO DAILY 02/21/18 08/30/18 08/30/18 History Lisinopril 40 mg PO DAILY 02/21/18 08/30/18 08/30/18 History Vit B Comp No.3/Folic/C/Biotin 1 tab PO DAILY 02/21/18 08/30/18 08/30/18 History [Nephro-Doreen Rx Tablet] Clindamycin [Clindamycin CAP] 300 mg PO Q8H 7 Days #21 cap 06/14/18 08/30/18 08/30/18 Rx Active Meds: Active Medications Acetaminophen (Tylenol) 650 mg PO Q4H PRN PRN Reason: Pain MILD(1-3)/Fever >100.5/[place]Y Ascorbic Acid (Vitamin C) 500 mg PO DAILY [facility] Aspirin (Halfprin Ec) 81 mg PO DAILY [facility] Atorvastatin Calcium (Lipitor) 40 mg PO HS [facility] Benzonatate (Tessalon Perles) 100 mg PO Q8HR PRN PRN Reason: Cough Calcitriol (Rocaltrol) 0.5 mcg PO QDAY [facility] Clindamycin HCl (Cleocin) 300 mg PO Q8H [facility] Last Admin: 08/31/18 01:15 Dose: 300 mg Documented by: Famotidine (Pepcid) 20 mg PO QHS [facility] Hydralazine HCl (Apresoline) 5 mg IV Q6HR PRN PRN Reason: Hypertension Hydromorphone HCl (Dilaudid) 0.5 mg IV Q3H PRN PRN Reason: Pain , Severe (7-10) Piperacillin Sod/Tazobactam Sod (Zosyn/Ns 2.25 Gm/50ml) 2.25 gm in 50 mls @ 100 mls/hr IV Q8H [facility]; Protocol Last Infusion: 08/31/18 03:54 Dose: Infused Documented by: Insulin Glargine (Lantus) 30 units SUB-Q QHS [facility] Isosorbide Mononitrate (Imdur) 60 mg PO DAILY [facility] Lisinopril (Zestril) 40 mg PO DAILY [facility] Metoprolol Tartrate (Lopressor) 50 mg PO BID [facility] Last Admin: 08/31/18 01:15 Dose: 50 mg Documented by: Miscellaneous Medication (Ferrous Sulfate [Slow Release Iron 47.5 Mg Tab]) 65 mg PO DAILY [facility] Multivit/Ca Carb/B Cmplx/FA/Prenat (Renal Caps) 1 cap PO QDAY [facility] Nifedipine (Procardia Xl) 60 mg PO BID [facility] Last Admin: 08/31/18 01:15 Dose: 60 mg Documented by: Ondansetron HCl (Zofran) 4 mg IV Q8H PRN PRN Reason: Nausea And Vomiting Oxycodone/Acetaminophen (Percocet 5/325) 1 tab PO Q6H PRN PRN Reason: Pain, Moderate (4-6) Sevelamer Carbonate (Renvela) 800 mg PO TIDWM [facility] Sodium Chloride (Sodium Chloride Flush Syringe 10 Ml) 10 ml IV BID [facility] Sodium Chloride (Sodium Chloride Flush Syringe 10 Ml) 10 ml IV PRN PRN PRN Reason: LINE FLUSH Torsemide (Demadex) 40 mg PO DAILY [facility] Review of Systems Constitutional: no weight loss, no weight gain, no fever, no chills, no anorexia, no weakness Breasts: deferred Cardiovascular: high blood pressure, no chest pain, no orthopnea, no edema, no syncope, no lightheadedness, no shortness of breath, no leg edema, no decreased exercise tolerance Respiratory: no cough, no hemoptysis, no shortness of breath, no dyspnea on exertion, no sleep apnea, no home oxygen Gastrointestinal: no abdominal pain, no nausea, no vomiting, no diarrhea, no melena Genitourinary Female: no dysuria, no hematuria Musculoskeletal: no muscle weakness Integumentary: redness, no rash, no jaundice Neurological: no paralysis, no weakness Exam - Vital Signs Vital signs: Vital Signs Temp Pulse Resp BP Pulse Ox 97.5 F L 80 18 179/86 99 08/30/18 14:34 08/30/18 14:34 08/30/18 14:34 08/30/18 14:34 08/30/18 14:34 - General Appearance General appearance: well-developed, well-nourished, appears stated age, other (not in distress) EENT: ATNC, PERRL, hearing intact, vision intact Neck: Present: neck supple, trachea midline Respiratory: Clear to Ascultation Heart: regular, S1S2, no murmurs Gastrointestinal: Present: normoactive bowel sounds, other (PD catheter, exit site slight redness and purulent discharge noted). Absent: tenderness, distended Neurologic: no focal deficit, no asterixis, alert and oriented x3 Musculoskeletal: Present: other (no edema) Results - Lab Results 08/30/18 17:08 08/30/18 17:08 Most recent lab results Calcium 9.1 mg/dL (8.4-10.2) 08/30/18 17:08 Assessment and Plan 1. PD exit site infection: Cultures ordered. Continue Vancomycin and Ceftriaxone. Modify Abx based on the culture results. Gen. Surgery consulted. 2. ESRD: Will do manual exchanges while in the hospital. Total of 4 exchanges with 2 bags of 2.5% and 2 bags of 1.5% solution. 3. Uncontrolled HTN: Resume home BP meds. UF with PD. 4. DM type 2. Patient to be transferred to 4 th floor for PD treatment.
--- NOTE | 2018-08-31 06:43 | Event Note ---
Date: 08/30/18 See H/p in reports PD catheter infection ESRD
[2018-08-31] MEDS ORDERED: K-DUR PO ONE ×2 (06:52→16:00)
--- NOTE | 2018-08-31 08:01 | History and Physical Report ---
CHIEF COMPLAINT: Pain around the peritoneal dialysis catheter. HISTORY OF PRESENT ILLNESS: A 68-year-old female on peritoneal dialysis for the last 5 years, comes in for pain and redness and drainage around the peritoneal dialysis catheter site for a couple of days, more so for the last 24 hours. Has a low-grade fever. No chills. The patient has a history of end-stage renal disease, on peritoneal dialysis, also has insulin-dependent diabetes, hyperlipidemia and hypertension. Pain is about 7 on a scale of 1-10. PAST MEDICAL HISTORY: As mentioned, end-stage renal disease, on peritoneal dialysis; insulin-dependent diabetes, hyperlipidemia, hypertension, coronary artery disease. CURRENT MEDICATIONS: On the chart. PAST SURGICAL HISTORY: Peritoneal dialysis catheter insertion, right breast surgery, benign lump removal. SOCIAL HISTORY: Does not smoke. No alcohol, no recreational drugs. FAMILY HISTORY: Significant for hypertension. REVIEW OF SYSTEMS: Significant for abdominal pain and redness around the peritoneal dialysis catheter with drainage. Erythema present. Otherwise, review of systems is negative. PHYSICAL EXAMINATION: GENERAL: Elderly female, cooperative during examination. VITAL SIGNS: Blood pressure is 180/92, temperature is 98.7, pulse is 57, respirations are 18. HEENT: Unremarkable. Pupils equal and reactive. NECK: Supple, no lymphadenopathy, no thyromegaly. LUNGS: Clear to auscultation and percussion. Good air entry. CARDIOVASCULAR: S1, S2 heard. No gallop, no murmur, no rub. Apical impulse in left fifth intercostal space and midclavicular line. ABDOMEN: Soft. Tenderness present in the peritoneal catheter site. Redness present. Some drainage present Some guarding present. EXTREMITIES: Good pedal pulses. No pedal edema. CENTRAL NERVOUS SYSTEM: Alert and oriented x 4, nonfocal exam. LABORATORY DATA AND IMAGING STUDIES: White count is 4300, H and H is 14.2 and 43.2, platelet count is 313,000. Sodium is 134, potassium is 3.3, BUN and creatinine is 40 and 13.0. Glucose is 425, 335 and 254. Hemoglobin A1c is 8.3. Abdominal CAT scan shows intraperitoneal free fluid, which is likely dialysis. Pelvic stranding on peritoneal dialysis catheter as it passes through the left anterior abdominal wall. This could represent cellulitis. ASSESSMENT AND PLAN: 1. Abdominal wall cellulitis secondary to peritoneal dialysis catheter infection. The patient started on IV Zosyn and IV vancomycin, pending cultures. Nephrology consulted. 2. Insulin-dependent diabetes. Continue coverage of the insulin and check hemoglobin A1c. Adjust insulin. 3. Hypertension. Continue antihypertensives. 4. Coronary artery disease. Continue isosorbide and aspirin. 5. End-stage renal disease. Continue on hemodialysis and also continue Renvela 800 mg 3 times a day. We will defer to Nephrology about hemodialysis. 6. Deep venous thrombosis prophylaxis, heparin 5000 q. 12. 7. Hypokalemia. Supplemented. JOB# [id number] JURGEN/COLE JARQUIN
[2018-08-31 09:14] LABS: Calcium 8.8 mg/dL (8.4-10.2)
[2018-08-31] MEDS ORDERED: FERROUS SULFATE 65 MG PO SCH (10:00)
[2018-08-31] MEDS ORDERED: [UNRECOGNIZED DRUG - REMARK] PO SCH (10:00)
[2018-08-31] MEDS ORDERED: NON-FORMULARY (Ascorbic Acid [Vitamin C] 500 MG) PO SCH (10:00)
[2018-08-31] MEDS ORDERED: TORSEMIDE 40 MG PO SCH (10:00)
[2018-08-31] MEDS ORDERED: NON-FORMULARY (Lisinopril 40 MG) PO SCH (10:00)
[2018-08-31] MEDS ORDERED: XYLOCAINE 1%/ EPI 1:100,000 INFILTRATI ONE (12:00)
[2018-08-31] MEDS: HumaLOG SUB-Q SCH ×5 (12:30→23:16)
[2018-08-31] MEDS: DIANEAL LOW CALCIUM W/2.5% DEXTROSE IP SCH ×2 (12:30→23:57)
--- NOTE | 2018-08-31 12:30 | Consultation ---
History of Present Illness Consult date: 08/31/18 Reason for consult: wound care Requesting physician: WHITNEY MADDOX Chief complaint: infection involving PD catheter site - History of present illness History of present illness: 68yo F presents with redness, pain, drainage near her PD catheter exit site. We had been asked to see for possible infection involving the PD catheter. Patient reports that this previously happened in June. I&D was performed in the emergency department. No packing was instructed. She was on antibiotics for about 2 weeks. She does not feel so completely healed. She has been able to use the catheter without any difficulty. She has no generalized abdominal pain. Denies any fevers or chills. Catheter was placed about 6 years ago. Past History Past Medical History: diabetes, dialysis, ESRD, hypertension, hyperlipidemia Past Surgical History: Other (PD catheter placement - 6 years ago) Social history: denies: smoking, alcohol abuse Family history: no significant family history Medications and Allergies Allergies Allergy/AdvReac Type Severity Reaction Status Date / Time epoetin randi Allergy Rash Verified 06/14/18 12:02 Home Medications Medication Instructions Recorded Confirmed Last Taken Type Aspirin [Aspirin Enteric Coated] 81 mg PO DAILY 07/06/13 08/30/18 08/30/18 Histo ry Insulin Glargine,Hum.rec.anlog 30 unit SQ QHS 07/06/13 08/30/18 08/30/18 History [Lantus Solostar] Metoprolol [Lopressor TAB] 50 mg PO BID 07/06/13 08/30/18 08/30/18 History Sevelamer Carbonate [Renvela] 800 mg PO TIDWM 07/06/13 08/30/18 08/30/18 History AtorvaSTATin [Lipitor] 40 mg PO HS 07/05/16 08/30/18 08/30/18 History Calcitriol [Rocaltrol] 0.5 mcg PO QDAY 07/05/16 08/30/18 08/30/18 History Ferrous Sulfate [Slow Release Iron 65 mg PO DAILY 07/05/16 08/31/18 07/04/16 His tory 47.5 Mg tab] 65mg NIFEdipine [Nifedipine ER] 60 mg PO BID 07/05/16 08/30/18 08/30/18 History Torsemide 40 mg PO DAILY 07/05/16 08/30/18 08/30/18 History Benzonatate [Tessalon Perles] 100 mg PO Q8HR PRN #30 capsule 08/21/17 08/30/18 08/30/18 Rx Ascorbic Acid [Vitamin C] 500 mg PO DAILY 02/21/18 08/30/18 08/30/18 History Famotidine 20 mg PO QHS 02/21/18 08/30/18 08/30/18 History ISOSORBIDE MONOnitrate [Imdur ER] 60 mg PO DAILY 02/21/18 08/30/18 08/30/18 History Lisinopril 40 mg PO DAILY 02/21/18 08/30/18 08/30/18 History Vit B Comp No.3/Folic/C/Biotin 1 tab PO DAILY 02/21/18 08/30/18 08/30/18 History [Nephro-Doreen Rx Tablet] Clindamycin [Clindamycin CAP] 300 mg PO Q8H 7 Days #21 cap 06/14/18 08/30/18 08/30/18 Rx Active Meds: Active Medications Acetaminophen (Tylenol) 650 mg PO Q4H PRN PRN Reason: Pain MILD(1-3)/Fever >100.5/KENNEDY Ascorbic Acid (Vitamin C) 500 mg PO DAILY MELINDA Aspirin (Halfprin Ec) 81 mg PO DAILY MELINDA Atorvastatin Calcium (Lipitor) 40 mg PO HS MELINDA Benzonatate (Tessalon Perles) 100 mg PO Q8HR PRN PRN Reason: Cough Calcitriol (Rocaltrol) 0.5 mcg PO QDAY MELINDA Famotidine (Pepcid) 20 mg PO QHS [facility] Hydralazine HCl (Apresoline) 5 mg IV Q6HR PRN PRN Reason: Hypertension Hydromorphone HCl (Dilaudid) 0.5 mg IV Q3H PRN PRN Reason: Pain , Severe (7-10) Last Admin: 08/31/18 11:52 Dose: 0.5 mg Documented by: Piperacillin Sod/Tazobactam Sod (Zosyn/Ns 2.25 Gm/50ml) 2.25 gm in 50 mls @ 100 mls/hr IV Q8H [facility]; Protocol Last Infusion: 08/31/18 03:54 Dose: Infused Documented by: Insulin Glargine (Lantus) 30 units SUB-Q QHS [facility] Insulin Human Lispro (Humalog) 0 unit SUB-Q ACHS [facility]; Protocol Isosorbide Mononitrate (Imdur) 60 mg PO DAILY [facility] Lisinopril (Zestril) 40 mg PO DAILY [facility] Metoprolol Tartrate (Lopressor) 50 mg PO BID [facility] Last Admin: 08/31/18 01:15 Dose: 50 mg Documented by: Miscellaneous Medication (Ferrous Sulfate [Slow Release Iron 47.5 Mg Tab]) 65 mg PO DAILY [facility] Multivit/Ca Carb/B Cmplx/FA/Prenat (Renal Caps) 1 cap PO QDAY [facility] Nifedipine (Procardia Xl) 60 mg PO BID [facility] Last Admin: 08/31/18 01:15 Dose: 60 mg Documented by: Ondansetron HCl (Zofran) 4 mg IV Q8H PRN PRN Reason: Nausea And Vomiting Oxycodone/Acetaminophen (Percocet 5/325) 1 tab PO Q6H PRN PRN Reason: Pain, Moderate (4-6) Peritoneal Dialysis Solution (Dianeal Low Calcium W/1.5% Dextrose) 2,000 ml IP BID@1100,1900 [facility] Peritoneal Dialysis Solution (Dianeal Low Calcium W/2.5% Dextrose) 2,000 ml IP BID@0700,1500 [facility] Sevelamer Carbonate (Renvela) 800 mg PO TIDWM [facility] Sodium Chloride (Sodium Chloride Flush Syringe 10 Ml) 10 ml IV BID [facility] Sodium Chloride (Sodium Chloride Flush Syringe 10 Ml) 10 ml IV PRN PRN PRN Reason: LINE FLUSH Torsemide (Demadex) 40 mg PO DAILY [facility] Review of Systems - Constitutional no fever, no chills, no chronic pain - Cardiovascular no chest pain, no shortness of breath - Gastrointestinal no abdominal pain - Integumentary wounds Exam Vital Signs Temp Pulse Resp BP Pulse Ox 97.5 F L 80 18 179/86 99 08/30/18 14:34 08/30/18 14:34 08/30/18 14:34 08/30/18 14:34 08/30/18 14:34 - General physical appearance Positive: no distress, no pain, other (does not appear ill. pleasant) - Eyes Positive: normal occular movement - Respiratory Positive: normal expansion, normal respiratory effort - Abdomen Abdomen: Present: soft, bowel sounds normal, wound (There is a point of drainage just lateral to the PD catheter. Drainage does not appear to be coming from around the catheter itself. There is in duration and mild erythema just superior to the area of the drainage site and catheter.). Absent: tender, distended - Neurologic Neurologic: alert and oriented to time, place and person - Psychiatric Psychiatric: appropriate mood/affect, intact judgment & insight Results - Labs 08/30/18 17:08 08/31/18 08:19 Abnormal lab results 08/30/18 08/30/18 08/30/18 Range/Units 17:08 17:08 17:08 WBC 4.3 L (4.5-11.0) K/mm3 Hct 43.2 H (30.3-42.9) % RDW 23.2 H (13.2-15.2) % [place] % (Auto) 13.9 H (0.0-7.3) % Lymph # 0.9 L (1.2-5.4) K/mm3 Sodium 134 L (137-145) mmol/L Potassium 3.3 L (3.6-5.0) mmol/L Chloride 89.0 L (98-107) mmol/L BUN 40 H (7-17) mg/dL Creatinine 13.0 H (0.7-1.2) mg/dL Glucose 425 H (65-100) mg/dL POC Glucose (70-105) Hemoglobin A1c 8.3 H (4-6) % 08/30/18 08/30/18 08/31/18 Range/Units 19:52 22:35 07:35 WBC (4.5-11.0) K/mm3 Hct (30.3-42.9) % RDW (13.2-15.2) % [place] % (Auto) (0.0-7.3) % Lymph # (1.2-5.4) K/mm3 Sodium (137-145) mmol/L Potassium (3.6-5.0) mmol/L Chloride (98-107) mmol/L BUN (7-17) mg/dL Creatinine (0.7-1.2) mg/dL Glucose (65-100) mg/dL POC Glucose 335 H 254 H 235 H (70-105) Hemoglobin A1c (4-6) % 08/31/18 Range/Units 08:19 WBC (4.5-11.0) K/mm3 Hct (30.3-42.9) % RDW (13.2-15.2) % [place] % (Auto) (0.0-7.3) % Lymph # (1.2-5.4) K/mm3 Sodium 133 L (137-145) mmol/L Potassium 3.3 L (3.6-5.0) mmol/L Chloride 89.2 L (98-107) mmol/L BUN 45 H (7-17) mg/dL Creatinine 14.0 H (0.7-1.2) mg/dL Glucose 239 H (65-100) mg/dL POC Glucose (70-105) Hemoglobin A1c (4-6) % Diabetes panel 08/30/18 08/30/18 08/31/18 Range/Units 17:08 17:08 08:19 Sodium 134 L 133 L (137-145) mmol/L Potassium 3.3 L 3.3 L (3.6-5.0) mmol/L Chloride 89.0 L 89.2 L (98-107) mmol/L Carbon Dioxide 26 25 (22-30) mmol/L BUN 40 H 45 H (7-17) mg/dL Creatinine 13.0 H 14.0 H (0.7-1.2) mg/dL Glucose 425 H 239 H (65-100) mg/dL Hemoglobin A1c 8.3 H (4-6) % Calcium 9.1 8.8 (8.4-10.2) mg/dL Calcium panel 08/30/18 08/31/18 Range/Units 17:08 08:19 Calcium 9.1 8.8 (8.4-10.2) mg/dL Phosphorus 3.60 (2.5-4.5) mg/dL Pituitary panel 08/30/18 08/31/18 Range/Units 17:08 08:19 Sodium 134 L 133 L (137-145) mmol/L Potassium 3.3 L 3.3 L (3.6-5.0) mmol/L Chloride 89.0 L 89.2 L (98-107) mmol/L Carbon Dioxide 26 25 (22-30) mmol/L BUN 40 H 45 H (7-17) mg/dL Creatinine 13.0 H 14.0 H (0.7-1.2) mg/dL Glucose 425 H 239 H (65-100) mg/dL Calcium 9.1 8.8 (8.4-10.2) mg/dL Adrenal panel 08/30/18 08/31/18 Range/Units 17:08 08:19 Sodium 134 L 133 L (137-145) mmol/L Potassium 3.3 L 3.3 L (3.6-5.0) mmol/L Chloride 89.0 L 89.2 L (98-107) mmol/L Carbon Dioxide 26 25 (22-30) mmol/L BUN 40 H 45 H (7-17) mg/dL Creatinine 13.0 H 14.0 H (0.7-1.2) mg/dL Glucose 425 H 239 H (65-100) mg/dL Calcium 9.1 8.8 (8.4-10.2) mg/dL - Imaging CT scan - abdomen: report reviewed, image reviewed CT scan - pelvis: report reviewed, image reviewed Assessment and Plan - Patient Problems (1) Abdominal wall cellulitis Current Visit: Yes Status: Acute Plan to address problem: Pt stable. At this point, I do not think the infection involves the PD catheter or its tract. I think the infection that she had in June was incompletely drained and therefore never completely healed. My plan is to try to open it up at the bedside and pack it. This will hopefully allow it to completely drain and eventually heal. She understands that secondary infection of the catheter is a risk. If the catheter gets infected she may have to have it removed. She understands. Discussed with Dr. Crump. Time=30min
--- NOTE | 2018-08-31 13:38 | Progress Note ---
Assessment and Plan Assessment and plan: --Abdominal wall cellulitis/abscess [PD catheter exit site wound /abscess] Surgery evaluated the patient, underwent incision and drainage Continue wound care, empiric antibiotics and supportive care --End-stage renal disease on peritoneal dialysis; nephrology following PD per scheduled --Hypokalemia; replace per protocol and monitor levels --Accelerated hypertension; continue current antihypertensives When necessary medications --Type 2 diabetes mellitus; Accu-Chek sliding scale coverage and ADA diet and Long-acting insulin, hemoglobin A1c 8.3 --DVT prophylaxis; heparin and renal dose Consults and recommendations noted and appreciated Monitor patient closely and adjust the management as needed Possible discharge in 1-2 days if stable History Interval history: Patient seen and examined medical records reviewed 68-year-old female patient was admitted with abdominal wall abscess and cellulitis Evaluated by surgery, underwent incision and drainage Patient feels slightly better no new complaints Receiving peritoneal hemodialysis Vital signs reviewed Hospitalist Physical - Constitutional Vitals: Temp Pulse Resp BP Pulse Ox 98.0 F 75 18 163/82 100 08/31/18 07:32 08/31/18 11:30 08/31/18 07:32 08/31/18 11:30 08/31/18 11:30 General appearance: Present: no acute distress, well-nourished - EENT Eyes: Present: PERRL, EOM intact - Neck Neck: Present: supple, normal ROM - Respiratory Respiratory effort: normal Respiratory: bilateral: diminished, negative: rales, rhonchi, wheezing - Cardiovascular Rhythm: regular Heart Sounds: Present: S1 & S2 - Extremities Extremities: no ischemia, No edema - Abdominal General gastrointestinal: soft, non-tender, non-distended, normal bowel sounds, other (abdominal wound dressing in place) - Integumentary Integumentary: Present: clear, warm - Psychiatric Psychiatric: appropriate mood/affect, cooperative - Neurologic Neurologic: CNII-XII intact, focal deficits Results - Labs CBC & Chem 7: 08/30/18 17:08 08/31/18 08:19 Labs: Laboratory Last Values WBC 4.3 K/mm3 (4.5-11.0) L 08/30/18 17:08 RBC 4.75 M/mm3 (3.65-5.03) 08/30/18 17:08 Hgb 14.2 gm/dl (10.1-14.3) 08/30/18 17:08 Hct 43.2 % (30.3-42.9) H 08/30/18 17:08 MCV 91 fl (79-97) 08/30/18 17:08 MCH 30 pg (28-32) 08/30/18 17:08 MCHC 33 % (30-34) 08/30/18 17:08 RDW 23.2 % (13.2-15.2) H 08/30/18 17:08 Plt Count 313 K/mm3 (140-440) 08/30/18 17:08 Lymph % (Auto) 19.9 % (13.4-35.0) 08/30/18 17:08 [place] % (Auto) 13.9 % (0.0-7.3) H 08/30/18 17:08 Eos % (Auto) 1.3 % (0.0-4.3) 08/30/18 17:08 Baso % (Auto) 0.8 % (0.0-1.8) 08/30/18 17:08 Lymph # 0.9 K/mm3 (1.2-5.4) L 08/30/18 17:08 [place] # 0.6 K/mm3 (0.0-0.8) 08/30/18 17:08 Eos # 0.1 K/mm3 (0.0-0.4) 08/30/18 17:08 Baso # 0.0 K/mm3 (0.0-0.1) 08/30/18 17:08 Seg Neutrophils % 64.1 % (40.0-70.0) 08/30/18 17:08 Seg Neutrophils # 2.8 K/mm3 (1.8-7.7) 08/30/18 17:08 Sodium 133 mmol/L (137-145) L 08/31/18 08:19 Potassium 3.3 mmol/L (3.6-5.0) L 08/31/18 08:19 Chloride 89.2 mmol/L (98-107) L 08/31/18 08:19 Carbon Dioxide 25 mmol/L (22-30) 08/31/18 08:19 Anion Gap 22 mmol/L 08/31/18 08:19 BUN 45 mg/dL (7-17) H 08/31/18 08:19 Creatinine 14.0 mg/dL (0.7-1.2) H 08/31/18 08:19 Estimated GFR 3 ml/min 08/31/18 08:19 BUN/Creatinine Ratio 3 % 08/31/18 08:19 Glucose 239 mg/dL (65-100) H 08/31/18 08:19 POC Glucose 365 (70-105) H 08/31/18 11:34 Hemoglobin A1c 8.3 % (4-6) H 08/30/18 17:08 Lactic Acid 1.30 mmol/L (0.7-2.0) 08/30/18 17:08 Calcium 8.8 mg/dL (8.4-10.2) 08/31/18 08:19 Phosphorus 3.60 mg/dL (2.5-4.5) 08/31/18 08:19
--- NOTE | 2018-08-31 13:40 | Procedure Note ---
Date of procedure: 08/31/18 Pre-op diagnosis: abdominal wall cellulitis Post-op diagnosis: other (abdominal wall abscess) Procedure: I&D of abdominal wall abscess Procedure, risks, benefits were discussed. Consent was obtained. Sterile prep was done. Timeout was called. Cotton tipped applicator was inserted through the small opening to guide the direction of the incision. 1% lidocaine with epinephrine was used to anesthetize the planned incision site and 11 blade was used to incise the skin and subcutaneous tissue. Tissue cavity was restricted to the subcutaneous tissue. it appear to be separate, but adjacent to the PD catheter tract site. It was cleaned out with the cotton tipped applicator and iIodoform packing was inserted. the surrounding skin was cleaned with Betadine. there were no complications. There is no active bleeding. Patient's nurse applied a new dressing to the PD catheter as well as tour new wound site. Findings: small amount of purulent material that was in a cavity adjacent, but not involving the PD catheter tract Anesthesia: local Surgeon: CAIN ROLAND Estimated blood loss: minimal Pathology: list (culture swab) Specimen disposition: to lab Condition: stable Disposition: floor
[2018-08-31] MEDS: IMDUR PO SCH (14:36)
[2018-08-31] MEDS: DEMADEX PO SCH (14:37)
[2018-08-31] MEDS: HALFPRIN EC PO SCH (14:37)
[2018-08-31] MEDS: VITAMIN C PO SCH (14:37)
[2018-08-31] MEDS: ZESTRIL PO SCH (14:37)
[2018-08-31] MEDS: ROCALTROL PO SCH (14:38)
[2018-08-31] MEDS: RENVELA PO SCH ×4 (14:38→23:57)
[2018-08-31] MEDS: Renal Caps PO SCH (14:38)
[2018-08-31] MEDS: SODIUM CHLORIDE FLUSH SYRINGE 10 ML IV SCH (14:39)
[2018-08-31] MEDS: DIANEAL LOW CALCIUM W/1.5% DEXTROSE IP SCH (16:55)
[2018-08-31 19:02] LABS: Total Cells Counted 100 /mm3
[2018-08-31] MEDS ORDERED: NON-FORMULARY (Insulin Glargine,Hum.Rec.Anlog [Lantus Solostar] 30 UNIT) SQ SCH (22:00)
[2018-08-31] MEDS: PERCOCET 5/325 PO PRN (22:06)
[2018-08-31] MEDS: FEOSOL PO SCH (22:06)
[2018-08-31] MEDS: PEPCID PO SCH (22:06)
[2018-08-31] MEDS: LANTUS SUB-Q SCH (23:17)
[2018-09-01] MEDS: ZOSYN/NS 2.25 GM/50ML 2.25 GM/50 ML BAG IV SCH ×3 (00:50→20:20)
[2018-09-01] MEDS: DIANEAL LOW CALCIUM W/1.5% DEXTROSE IP SCH ×3 (01:06→23:01)
[2018-09-01 05:59] LABS: Basophils % (Auto) 0.7 % (0.0-1.8); Eosinophils # (Auto) 0.2 K/mm3 (0.0-0.4); Hematocrit 39.1 % (30.3-42.9); Hemoglobin 12.9 gm/dl (10.1-14.3); Lymphocytes # (Auto) 0.9 K/mm3 (1.2-5.4); Lymphocytes % (Auto) 23.3 % (13.4-35.0); Mean Corpuscular HGB Conc 33 % (30-34); Mean Corpuscular Volume 89 fl (79-97); Monocytes # (Auto) 0.6 K/mm3 (0.0-0.8); Monocytes % (Auto) 15.1 % (0.0-7.3); Platelet Count 301 K/mm3 (140-440); Red Blood Count 4.37 M/mm3 (3.65-5.03)
[2018-09-01 06:04] LABS: Red Cell Distribution Width 23.1 % (13.2-15.2)
[2018-09-01 06:45] LABS: Albumin 3.1 g/dL (3.9-5); Calcium 8.9 mg/dL (8.4-10.2)
[2018-09-01] MEDS: HumaLOG SUB-Q SCH ×4 (09:09→22:02)
[2018-09-01] MEDS: RENVELA PO SCH ×3 (09:10→19:22)
[2018-09-01] MEDS: DIANEAL LOW CALCIUM W/2.5% DEXTROSE IP SCH ×2 (09:40→21:10)
[2018-09-01] MEDS ORDERED: K-DUR PO ONE (10:07)
--- NOTE | 2018-09-01 11:43 | Progress Note ---
Assessment and Plan - Patient Problems (1) Abdominal wall cellulitis Current Visit: Yes Status: Acute Plan to address problem: Pt stable. s/p I&D of abdominal wall abscess. Instructed daughter on dressing change. Ok to d/c home - f/u in 2 weeks. - continue dressing changes at home BID - please call with questions. Time=10min Subjective Date of service: 09/01/18 Patient Reports: Positive: no new complaints, feels better Objective Vital Signs - 12hr 09/01/18 09/01/18 09/01/18 05:03 08:00 09:40 Temperature 98.2 F 98.1 F Pulse Rate 58 L 61 63 Pulse Rate [ From Monitor] Respiratory 20 16 Rate Blood Pressure 147/77 158/81 Blood Pressure 151/77 [Left] O2 Sat by Pulse 95 98 Oximetry 09/01/18 09/01/18 10:00 10:30 Temperature Pulse Rate 68 Pulse Rate [ 61 From Monitor] Respiratory 16 Rate Blood Pressure Blood Pressure 154/71 [Left] O2 Sat by Pulse 98 Oximetry - General physical appearance no distress, no pain - Respiratory normal expansion, normal respiratory effort - Abdomen soft, not tender, wound (no purulent drainage. Changed dressing with daughter) - Psychiatric oriented to time, oriented to person, oriented to place, speech is normal, memory intact - Labs 09/01/18 05:41 09/01/18 05:41 Diabetes panel 09/01/18 Range/Units 05:41 Sodium 134 L (137-145) mmol/L Potassium 3.2 L (3.6-5.0) mmol/L Chloride 89.6 L (98-107) mmol/L Carbon Dioxide 23 (22-30) mmol/L BUN 43 H (7-17) mg/dL Creatinine 13.5 H (0.7-1.2) mg/dL Glucose 187 H (65-100) mg/dL Calcium 8.9 (8.4-10.2) mg/dL AST 16 (5-40) units/L ALT 10 (7-56) units/L Alkaline Phosphatase 71 (35-129) units/L Total Protein 6.3 (6.3-8.2) g/dL Albumin 3.1 L (3.9-5) g/dL Calcium panel 09/01/18 Range/Units 05:41 Calcium 8.9 (8.4-10.2) mg/dL Albumin 3.1 L (3.9-5) g/dL Pituitary panel 09/01/18 Range/Units 05:41 Sodium 134 L (137-145) mmol/L Potassium 3.2 L (3.6-5.0) mmol/L Chloride 89.6 L (98-107) mmol/L Carbon Dioxide 23 (22-30) mmol/L BUN 43 H (7-17) mg/dL Creatinine 13.5 H (0.7-1.2) mg/dL Glucose 187 H (65-100) mg/dL Calcium 8.9 (8.4-10.2) mg/dL Adrenal panel 09/01/18 Range/Units 05:41 Sodium 134 L (137-145) mmol/L Potassium 3.2 L (3.6-5.0) mmol/L Chloride 89.6 L (98-107) mmol/L Carbon Dioxide 23 (22-30) mmol/L BUN 43 H (7-17) mg/dL Creatinine 13.5 H (0.7-1.2) mg/dL Glucose 187 H (65-100) mg/dL Calcium 8.9 (8.4-10.2) mg/dL Total Bilirubin 0.30 (0.1-1.2) mg/dL AST 16 (5-40) units/L ALT 10 (7-56) units/L Alkaline Phosphatase 71 (35-129) units/L Total Protein 6.3 (6.3-8.2) g/dL Albumin 3.1 L (3.9-5) g/dL
[2018-09-01] MEDS: DEMADEX PO SCH (11:56)
[2018-09-01] MEDS: VITAMIN C PO SCH (11:57)
[2018-09-01] MEDS: HALFPRIN EC PO SCH (11:57)
[2018-09-01] MEDS: ROCALTROL PO SCH (11:57)
[2018-09-01] MEDS: Renal Caps PO SCH (11:57)
[2018-09-01] MEDS: PROCARDIA XL PO SCH ×2 (11:57→22:04)
[2018-09-01] MEDS: ZESTRIL PO SCH (11:57)
[2018-09-01] MEDS: IMDUR PO SCH (11:57)
[2018-09-01] MEDS: FEOSOL PO SCH ×2 (11:57→22:05)
[2018-09-01] MEDS: LOPRESSOR PO SCH ×3 (12:07→22:04)
[2018-09-01] MEDS: SODIUM CHLORIDE FLUSH SYRINGE 10 ML IV SCH ×4 (12:08→22:07)
[2018-09-01] MEDS ORDERED: K-DUR PO NR (12:15)
--- NOTE | 2018-09-01 14:29 | Progress Note ---
Assessment and Plan 1. PD exit site infection: S/p I&D. Cultures ordered. Continue Vancomycin and Ceftriaxone. Modify Abx based on the culture results. 2. ESRD: Continue manual exchanges while in the hospital. Total of 4 exchanges with 2 bags of 2.5% and 2 bags of 1.5% solution. 3. FE: Replete K. 4. Uncontrolled HTN: Monitor BP. UF with PD. 5. DM type 2. D/w her daughter at the bedside. Subjective Date of service: 09/01/18 Interval history: Patient is feeling better. Objective - Vital Signs Vital signs: Vital Signs - 12hr 09/01/18 09/01/18 09/01/18 05:03 08:00 09:40 Temperature 98.2 F 98.1 F Pulse Rate 58 L 61 63 Pulse Rate [ From Monitor] Respiratory 20 16 Rate Blood Pressure 147/77 158/81 Blood Pressure 151/77 [Left] O2 Sat by Pulse 95 98 Oximetry 09/01/18 09/01/18 10:00 10:30 Temperature Pulse Rate 61 68 Pulse Rate [ 61 From Monitor] Respiratory 16 Rate Blood Pressure Blood Pressure 154/71 [Left] O2 Sat by Pulse 98 Oximetry - General Appearance General appearance: well-developed, well-nourished, appears stated age, other (not in distress) EENT: ATNC, PERRL, mucous membranes moist, hearing intact, vision intact Neck: supple Respiratory: Present: Clear to Ascultation Cardiology: regular, S1S2, no murmurs Gastrointestinal: normoactive bowel sounds, no tenderness, no distended, other (PD catheter noted) Integumentary: no rash Neurologic: no focal deficit, no asterixis, alert and oriented x3 Musculoskeletal: other (no edema) Psychiatric: cooperative - Lab 09/01/18 05:41 09/01/18 05:41 Most recent lab results Calcium 8.9 mg/dL (8.4-10.2) 09/01/18 05:41 Phosphorus 3.60 mg/dL (2.5-4.5) 08/31/18 08:19 Medications & Allergies - Medications Allergies/Adverse Reactions: Allergies epoetin randi Allergy (Verified 06/14/18 12:02) Rash Home Medications: Home Medications Medication Instructions Recorded Confirmed Last Taken Type Aspirin [Aspirin Enteric Coated] 81 mg PO DAILY 07/06/13 08/30/1808/30/19 History Insulin Glargine,Hum.rec.anlog 30 unit SQ QHS 07/06/13 08/30/18 08/30/18 History [Lantus Solostar] Metoprolol [Lopressor TAB] 50 mg PO BID 07/06/13 08/30/18 08/30/18 History Sevelamer Carbonate [Renvela] 800 mg PO TIDWM 07/06/13 08/30/18 08/30/18 History AtorvaSTATin [Lipitor] 40 mg PO HS 07/05/16 08/30/18 08/30/18 History Calcitriol [Rocaltrol] 0.5 mcg PO QDAY 07/05/16 08/30/18 08/30/18 History Ferrous Sulfate [Slow Release Iron 65 mg PO DAILY 07/05/16 08/31/18 07/04/16 History 47.5 Mg tab] 65mg NIFEdipine [Nifedipine ER] 60 mg PO BID 07/05/16 08/30/18 08/30/18 History Torsemide 40 mg PO DAILY 07/05/16 08/30/18 08/30/18 History Benzonatate [Tessalon Perles] 100 mg PO Q8HR PRN #30 capsule 08/21/17 08/30/18 08/30/18 Rx Ascorbic Acid [Vitamin C] 500 mg PO DAILY 02/21/18 08/30/18 08/30/18 History Famotidine 20 mg PO QHS 02/21/18 08/30/18 08/30/18 History ISOSORBIDE MONOnitrate [Imdur ER] 60 mg PO DAILY 02/21/18 08/30/18 08/30/18 History Lisinopril 40 mg PO DAILY 02/21/18 08/30/18 08/30/18 History Vit B Comp No.3/Folic/C/Biotin 1 tab PO DAILY 02/21/18 08/30/18 08/30/18 History [Nephro-Doreen Rx Tablet] Clindamycin [Clindamycin CAP] 300 mg PO Q8H 7 Days #21 cap 06/14/18 08/30/1807/20 Rx Active Medications: Generic Name Dose Route Start Last Admin Trade Name Freq PRN Reason Stop Dose Admin Acetaminophen 650 mg 08/31/18 00:04 Tylenol PO Q4H PRN Pain MILD(1-3)/Fever >100.5/KENNEDY Ascorbic Acid 500 mg 08/31/18 10:00 09/01/18 11:57 Vitamin C PO 500 mg DAILY MELINDA Administration Aspirin 81 mg 08/31/18 10:00 09/01/18 11:57 Halfprin Ec PO 81 mg DAILY MELINDA Administration Atorvastatin Calcium 40 mg 08/31/18 22:00 08/31/18 22:06 Lipitor PO 40 mg HS MELINDA Administration Benzonatate 100 mg 08/31/18 00:00 08/31/18 16:06 Tessalon Perles PO 100 mg Q8HR PRN Administration Cough Calcitriol 0.5 mcg 08/31/18 10:00 09/01/18 11:57 Rocaltrol PO 0.5 mcg QDAY MELINDA Administration Famotidine 20 mg 08/31/18 22:00 08/31/18 22:06 Pepcid PO 20 mg QHS MELINDA Administration Ferrous Sulfate 325 mg 08/31/18 22:00 09/01/18 11:57 Feosol PO 325 mg BID MELINDA Administration Hydralazine HCl 5 mg 08/31/18 02:41 Apresoline IV Q6HR PRN Hypertension Piperacillin Sod/Tazobactam Sod 2.25 gm in 50 mls @ 100 mls/hr 08/31/18 01:00 09/01/18 11:56 Zosyn/Ns 2.25 Gm/50ml IV 50 mls/hr Q8H MELINDA Administration Protocol Insulin Glargine 30 units 08/31/18 22:00 08/31/18 23:17 Lantus SUB-Q 30 units QHS MELINDA Administration Insulin Human Lispro 0 unit 08/31/18 07:30 09/01/18 13:08 Humalog SUB-Q 3 unit ACHS MELINDA Administration Protocol Isosorbide Mononitrate 60 mg 08/31/18 10:00 09/01/18 11:57 Imdur PO 60 mg DAILY MELINDA Administration Lisinopril 40 mg 08/31/18 10:00 09/01/18 11:57 Zestril PO 40 mg DAILY MELINDA Administration Metoprolol Tartrate 50 mg 08/31/18 01:00 09/01/18 12:12 Lopressor PO Not Given BID [facility] Multivit/Ca Carb/B Cmplx/FA/Prenat 1 cap 08/31/18 10:00 09/01/18 11:57 Renal Caps PO 1 cap QDAY MELINDA Administration Nifedipine 60 mg 08/31/18 01:00 09/01/18 11:57 Procardia Xl PO 60 mg BID MELINDA Administration Ondansetron HCl 4 mg 08/31/18 00:04 Zofran IV Q8H PRN Nausea And Vomiting Oxycodone/Acetaminophen 1 tab 08/31/18 00:04 08/31/18 22:06 Percocet 5/325 PO 1 tab Q6H PRN Administration Pain, Moderate (4-6) Peritoneal Dialysis Solution 2,000 ml 08/31/18 11:00 09/01/18 01:06 Dianeal Low Calcium W/1.5% Dextrose IP Not Given BID@1100,1900 MELINDA Peritoneal Dialysis Solution 2,000 ml 08/31/18 07:15 09/01/18 09:40 Dianeal Low Calcium W/2.5% Dextrose IP 2,000 ml BID@0700,1500 MELINDA Administration Sevelamer Carbonate 800 mg 08/31/18 08:00 09/01/18 12:20 Renvela PO 800 mg TIDWM MELINDA Administration Sodium Chloride 10 ml 08/31/18 10:00 09/01/18 12:13 Sodium Chloride Flush Syringe 10 Ml IV 10 ml BID MELINDA Administration Sodium Chloride 10 ml 08/31/18 00:04 Sodium Chloride Flush Syringe 10 Ml IV PRN PRN LINE FLUSH Torsemide 40 mg 08/31/18 10:00 09/01/18 11:56 Demadex PO 40 mg DAILY MELINDA Administration
--- NOTE | 2018-09-01 14:44 | Progress Note ---
Assessment and Plan Assessment and plan: --Abdominal wall cellulitis/abscess [PD catheter exit site wound /abscess] s/p I&D empiric antibiotics and supportive care Follow sensitivities and adjust antibiotics, ID evaluation if needed --End-stage renal disease on peritoneal dialysis; nephrology following PD per scheduled --Hypokalemia; replace per protocol and monitor levels --Accelerated hypertension; continue current antihypertensives When necessary medications --Type 2 diabetes mellitus; Accu-Chek sliding scale coverage and ADA diet and Long-acting insulin, hemoglobin A1c 8.3 --DVT prophylaxis; heparin and renal dose Stable to be transferred out of telemetry to [facility]/ medical floor Possible discharge in 1-2 days if stable History Interval history: Patient seen and evaluated this morning medical records reviewed No new events reported by the nursing staff Wound cultures positive for gram-negative rods Afebrile Vital signs reviewed Hospitalist Physical - Constitutional Vitals: Temp Pulse Resp BP Pulse Ox 98.1 F 68 16 154/71 98 09/01/18 08:00 09/01/18 10:30 09/01/18 10:00 09/01/18 10:30 09/01/18 10:00 General appearance: Present: no acute distress, well-nourished - EENT Eyes: Present: PERRL, EOM intact - Neck Neck: Present: supple, normal ROM - Respiratory Respiratory effort: normal Respiratory: bilateral: diminished, negative: rales, rhonchi, wheezing - Cardiovascular Rhythm: regular Heart Sounds: Present: S1 & S2 - Extremities Extremities: no ischemia, No edema - Abdominal General gastrointestinal: soft, non-tender, non-distended, normal bowel sounds, other (abdominal wound dressing intact) - Integumentary Integumentary: Present: clear, warm - Psychiatric Psychiatric: appropriate mood/affect, cooperative - Neurologic Neurologic: CNII-XII intact, moves all extremities Results - Labs CBC & Chem 7: 09/01/18 05:41 09/01/18 05:41 Labs: Laboratory Last Values WBC 4.0 K/mm3 (4.5-11.0) L 09/01/18 05:41 RBC 4.37 M/mm3 (3.65-5.03) 09/01/18 05:41 Hgb 12.9 gm/dl (10.1-14.3) 09/01/18 05:41 Hct 39.1 % (30.3-42.9) 09/01/18 05:41 MCV 89 fl (79-97) 09/01/18 05:41 MCH 29 pg (28-32) 09/01/18 05:41 MCHC 33 % (30-34) 09/01/18 05:41 RDW 23.1 % (13.2-15.2) H 09/01/18 05:41 Plt Count 301 K/mm3 (140-440) 09/01/18 05:41 Lymph % (Auto) 23.3 % (13.4-35.0) 09/01/18 05:41 [place] % (Auto) 15.1 % (0.0-7.3) H 09/01/18 05:41 Eos % (Auto) 4.0 % (0.0-4.3) 09/01/18 05:41 Baso % (Auto) 0.7 % (0.0-1.8) 09/01/18 05:41 Lymph # 0.9 K/mm3 (1.2-5.4) L 09/01/18 05:41 [place] # 0.6 K/mm3 (0.0-0.8) 09/01/18 05:41 Eos # 0.2 K/mm3 (0.0-0.4) 09/01/18 05:41 Baso # 0.0 K/mm3 (0.0-0.1) 09/01/18 05:41 Seg Neutrophils % 56.9 % (40.0-70.0) 09/01/18 05:41 Seg Neutrophils # 2.3 K/mm3 (1.8-7.7) 09/01/18 05:41 Sodium 134 mmol/L (137-145) L 09/01/18 05:41 Potassium 3.2 mmol/L (3.6-5.0) L 09/01/18 05:41 Chloride 89.6 mmol/L (98-107) L 09/01/18 05:41 Carbon Dioxide 23 mmol/L (22-30) 09/01/18 05:41 Anion Gap 25 mmol/L 09/01/18 05:41 BUN 43 mg/dL (7-17) H 09/01/18 05:41 Creatinine 13.5 mg/dL (0.7-1.2) H 09/01/18 05:41 Estimated GFR 3 ml/min 09/01/18 05:41 BUN/Creatinine Ratio 3 % 09/01/18 05:41 Glucose 187 mg/dL (65-100) H 09/01/18 05:41 POC Glucose 225 (70-105) H 09/01/18 13:07 Hemoglobin A1c 8.3 % (4-6) H 08/30/18 17:08 Lactic Acid 1.30 mmol/L (0.7-2.0) 08/30/18 17:08 Calcium 8.9 mg/dL (8.4-10.2) 09/01/18 05:41 Phosphorus 3.60 mg/dL (2.5-4.5) 08/31/18 08:19 Total Bilirubin 0.30 mg/dL (0.1-1.2) 09/01/18 05:41 AST 16 units/L (5-40) 09/01/18 05:41 ALT 10 units/L (7-56) 09/01/18 05:41 Alkaline Phosphatase 71 units/L (35-129) 09/01/18 05:41 Total Protein 6.3 g/dL (6.3-8.2) 09/01/18 05:41 Albumin 3.1 g/dL (3.9-5) L 09/01/18 05:41 Albumin/Globulin Ratio 1.0 % 09/01/18 05:41 Fluid Type Dialysate 08/30/18 Unknown Fluid Color Straw 08/30/18 Unknown Fluid Appearance Clear 08/30/18 Unknown Fluid WBC 17 /mm3 08/30/18 Unknown Fluid RBC 7 /mm3 08/30/18 Unknown Fluid Seg Neutrophils 24.0 % 08/30/18 Unknown Fluid Lymphocytes 8.0 % 08/30/18 Unknown Fluid Reactive Lymphs 0 % 08/30/18 Unknown Fluid Monocytes 65.0 % 08/30/18 Unknown Fluid Eosinophils 3.0 % 08/30/18 Unknown Fluid Basophils 0 % 08/30/18 Unknown Random Vancomycin 13.7 ug/mL (0-40.0) 09/01/18 05:41
[2018-09-01] MEDS: PEPCID PO SCH (22:03)
[2018-09-01] MEDS: LANTUS SUB-Q SCH (22:05)
[2018-09-02] MEDS: ZOSYN/NS 2.25 GM/50ML 2.25 GM/50 ML BAG IV SCH ×3 (01:44→16:41)
[2018-09-02] MEDS: DIANEAL LOW CALCIUM W/1.5% DEXTROSE IP SCH ×3 (01:45→21:30)
[2018-09-02 05:54] LABS: Calcium 8.6 mg/dL (8.4-10.2)
[2018-09-02] MEDS: DIANEAL LOW CALCIUM W/2.5% DEXTROSE IP SCH ×3 (07:05→19:00)
[2018-09-02] MEDS: HumaLOG SUB-Q SCH ×4 (07:57→22:16)
[2018-09-02] MEDS: PERCOCET 5/325 PO PRN ×2 (08:02→22:16)
[2018-09-02] MEDS: RENVELA PO SCH ×3 (08:02→16:41)
--- NOTE | 2018-09-02 08:22 | Progress Note ---
Assessment and Plan Assessment and plan: --Abdominal wall cellulitis/abscess [PD catheter exit site wound /abscess] s/p I&D empiric antibiotics and supportive care, wound healthy, cultures grew Escherichia coli, pansensitive continue Zosyn. Discharge on oral antibiotics in 1 or 2 days --End-stage renal disease on peritoneal dialysis; nephrology following PD per scheduled --Hypokalemia; replace per protocol and monitor levels --Accelerated hypertension; continue current antihypertensives When necessary medications --Type 2 diabetes mellitus; Accu-Chek sliding scale coverage and ADA diet and Long-acting insulin, hemoglobin A1c 8.3 --DVT prophylaxis; heparin and renal dose Stable to be transferred out of telemetry to [facility]/ medical floor Possible discharge in 1-2 days if stable History Interval history: Patient seen and examined medical records reviewed No new events reported by the nursing staff Wound cultures positive for Escherichia coli pansensitive Patient is on Zosyn Alert awake oriented 3 Vital signs reviewed Hospitalist Physical - Constitutional Vitals: Temp Pulse Resp BP Pulse Ox 98.6 F 60 18 161/73 97 09/02/18 01:42 09/02/18 01:42 09/02/18 01:42 09/02/18 01:42 09/02/18 01:42 General appearance: Present: no acute distress, well-nourished - EENT Eyes: Present: PERRL, EOM intact - Neck Neck: Present: supple, normal ROM - Respiratory Respiratory effort: normal Respiratory: bilateral: diminished, negative: rales, rhonchi, wheezing - Cardiovascular Rhythm: regular Heart Sounds: Present: S1 & S2 - Extremities Extremities: no ischemia, No edema - Abdominal General gastrointestinal: soft, non-tender, non-distended, normal bowel sounds, other (wound dressing in place) - Integumentary Integumentary: Present: clear, warm - Psychiatric Psychiatric: appropriate mood/affect, cooperative - Neurologic Neurologic: CNII-XII intact, moves all extremities Results - Labs CBC & Chem 7: 09/01/18 05:41 09/02/18 05:07 Labs: Laboratory Last Values WBC 4.0 K/mm3 (4.5-11.0) L 09/01/18 05:41 RBC 4.37 M/mm3 (3.65-5.03) 09/01/18 05:41 Hgb 12.9 gm/dl (10.1-14.3) 09/01/18 05:41 Hct 39.1 % (30.3-42.9) 09/01/18 05:41 MCV 89 fl (79-97) 09/01/18 05:41 MCH 29 pg (28-32) 09/01/18 05:41 MCHC 33 % (30-34) 09/01/18 05:41 RDW 23.1 % (13.2-15.2) H 09/01/18 05:41 Plt Count 301 K/mm3 (140-440) 09/01/18 05:41 Lymph % (Auto) 23.3 % (13.4-35.0) 09/01/18 05:41 [place] % (Auto) 15.1 % (0.0-7.3) H 09/01/18 05:41 Eos % (Auto) 4.0 % (0.0-4.3) 09/01/18 05:41 Baso % (Auto) 0.7 % (0.0-1.8) 09/01/18 05:41 Lymph # 0.9 K/mm3 (1.2-5.4) L 09/01/18 05:41 [place] # 0.6 K/mm3 (0.0-0.8) 09/01/18 05:41 Eos # 0.2 K/mm3 (0.0-0.4) 09/01/18 05:41 Baso # 0.0 K/mm3 (0.0-0.1) 09/01/18 05:41 Seg Neutrophils % 56.9 % (40.0-70.0) 09/01/18 05:41 Seg Neutrophils # 2.3 K/mm3 (1.8-7.7) 09/01/18 05:41 Sodium 133 mmol/L (137-145) L 09/02/18 05:07 Potassium 3.0 mmol/L (3.6-5.0) L 09/02/18 05:07 Chloride 90.0 mmol/L (98-107) L 09/02/18 05:07 Carbon Dioxide 26 mmol/L (22-30) 09/02/18 05:07 Anion Gap 20 mmol/L 09/02/18 05:07 BUN 38 mg/dL (7-17) H 09/02/18 05:07 Creatinine 13.3 mg/dL (0.7-1.2) H 09/02/18 05:07 Estimated GFR 3 ml/min 09/02/18 05:07 BUN/Creatinine Ratio 3 % 09/02/18 05:07 Glucose 90 mg/dL (65-100) 09/02/18 05:07 POC Glucose 198 (70-105) H 09/01/18 22:06 Hemoglobin A1c 8.3 % (4-6) H 08/30/18 17:08 Lactic Acid 1.30 mmol/L (0.7-2.0) 08/30/18 17:08 Calcium 8.6 mg/dL (8.4-10.2) 09/02/18 05:07 Phosphorus 3.60 mg/dL (2.5-4.5) 08/31/18 08:19 Total Bilirubin 0.30 mg/dL (0.1-1.2) 09/01/18 05:41 AST 16 units/L (5-40) 09/01/18 05:41 ALT 10 units/L (7-56) 09/01/18 05:41 Alkaline Phosphatase 71 units/L (35-129) 09/01/18 05:41 Total Protein 6.3 g/dL (6.3-8.2) 09/01/18 05:41 Albumin 3.1 g/dL (3.9-5) L 09/01/18 05:41 Albumin/Globulin Ratio 1.0 % 09/01/18 05:41 Fluid Type Dialysate 08/30/18 Unknown Fluid Color Straw 08/30/18 Unknown Fluid Appearance Clear 08/30/18 Unknown Fluid WBC 17 /mm3 08/30/18 Unknown Fluid RBC 7 /mm3 08/30/18 Unknown Fluid Seg Neutrophils 24.0 % 08/30/18 Unknown Fluid Lymphocytes 8.0 % 08/30/18 Unknown Fluid Reactive Lymphs 0 % 08/30/18 Unknown Fluid Monocytes 65.0 % 08/30/18 Unknown Fluid Eosinophils 3.0 % 08/30/18 Unknown Fluid Basophils 0 % 08/30/18 Unknown Random Vancomycin 13.7 ug/mL (0-40.0) 09/01/18 05:41
--- NOTE | 2018-09-02 09:15 | Progress Note ---
Assessment and Plan 1. PD exit site infection: S/p I&D. Wound cultures - gram negative rods. Will stop Vancomycin. Continue Zosyn. PD fluid WBC 17. 2. ESRD: Continue manual exchanges while in the hospital. Total of 4 exchanges with 2 bags of 2.5% and 2 bags of 1.5% solution. 3. FE: Replete K. 4. Uncontrolled HTN: Add Cardura. Monitor BP. UF with PD. 5. DM type 2. Subjective Date of service: 09/02/18 Interval history: Patient is feeling better. Objective - Vital Signs Vital signs: Vital Signs - 12hr 09/01/18 09/01/18 09/02/18 22:00 22:04 01:42 Temperature 98.6 F Pulse Rate 74 74 60 Pulse Rate [ 74 From Monitor] Respiratory 18 18 Rate Blood Pressure 153/78 161/73 O2 Sat by Pulse 99 97 Oximetry 09/02/18 07:43 Temperature 98.8 F Pulse Rate 62 Pulse Rate [ From Monitor] Respiratory 18 Rate Blood Pressure 171/78 O2 Sat by Pulse 98 Oximetry - General Appearance General appearance: well-developed, well-nourished, appears stated age, other (not in distress) EENT: ATNC, PERRL, mucous membranes moist, hearing intact, vision intact Neck: supple Respiratory: Present: Clear to Ascultation Cardiology: regular, S1S2, no murmurs Gastrointestinal: normoactive bowel sounds, no tenderness, no distended, other (PD catheter noted) Integumentary: no rash, warm and dry Neurologic: no focal deficit, no asterixis, alert and oriented x3 Musculoskeletal: other (no edema) Psychiatric: cooperative - Lab 09/01/18 05:41 09/02/18 05:07 Most recent lab results Calcium 8.6 mg/dL (8.4-10.2) 09/02/18 05:07 Phosphorus 3.60 mg/dL (2.5-4.5) 08/31/18 08:19 Medications & Allergies - Medications Allergies/Adverse Reactions: Allergies epoetin randi Allergy (Verified 06/14/18 12:02) Rash Home Medications: Home Medications Medication Instructions Recorded Confirmed Last Taken Type Aspirin [Aspirin Enteric Coated] 81 mg PO DAILY 07/06/13 08/30/18 08/30/18 History Insulin Glargine,Hum.rec.anlog 30 unit SQ QHS 07/06/13 08/30/18 08/30/18 History [Lantus Solostar] Metoprolol [Lopressor TAB] 50 mg PO BID 07/06/13 08/30/18 08/30/18 History Sevelamer Carbonate [Renvela] 800 mg PO TIDWM 07/06/13 08/30/18 08/30/18 History AtorvaSTATin [Lipitor] 40 mg PO HS 07/05/16 08/30/18 08/30/18 History Calcitriol [Rocaltrol] 0.5 mcg PO QDAY 07/05/16 08/30/18 08/30/18 History Ferrous Sulfate [Slow Release Iron 65 mg PO DAILY 07/05/16 08/31/18 07/04/16 History 47.5 Mg tab] 65mg NIFEdipine [Nifedipine ER] 60 mg PO BID 07/05/16 08/30/18 08/30/18 History Torsemide 40 mg PO DAILY 07/05/16 08/30/18 08/30/18 History Benzonatate [Tessalon Perles] 100 mg PO Q8HR PRN #30 capsule 08/21/17 08/30/18 0 08/30/18 Rx Ascorbic Acid [Vitamin C] 500 mg PO DAILY 02/21/18 08/30/18 08/30/18 History Famotidine 20 mg PO QHS 02/21/18 08/30/18 08/30/18 History ISOSORBIDE MONOnitrate [Imdur ER] 60 mg PO DAILY 02/21/18 08/30/18 08/30/18 History Lisinopril 40 mg PO DAILY 02/21/18 08/30/18 08/30/18 History Vit B Comp No.3/Folic/C/Biotin 1 tab PO DAILY 02/21/18 08/30/18 08/30/18 History [Nephro-Doreen Rx Tablet] Clindamycin [Clindamycin CAP] 300 mg PO Q8H 7 Days #21 cap 06/14/18 08/30/18 08/30/18 Rx Active Medications: Generic Name Dose Route Start Last Admin Trade Name Freq PRN Reason Stop Dose Admin Acetaminophen 650 mg 08/31/18 00:04 Tylenol PO Q4H PRN Pain MILD(1-3)/Fever >100.5/KENNEDY Ascorbic Acid 500 mg 08/31/18 10:00 09/01/18 11:57 Vitamin C PO 500 mg DAILY MELINDA Administration Aspirin 81 mg 08/31/18 10:00 09/01/18 11:57 Halfprin Ec PO 81 mg DAILY MELINDA Administration Atorvastatin Calcium 40 mg 08/31/18 22:00 09/01/18 22:04 Lipitor PO 40 mg HS MELINDA Administration Benzonatate 100 mg 08/31/18 00:00 08/31/18 16:06 Tessalon Perles PO 100 mg Q8HR PRN Administration Cough Calcitriol 0.5 mcg 08/31/18 10:00 09/01/18 11:57 Rocaltrol PO 0.5 mcg QDAY MELINDA Administration Famotidine 20 mg 08/31/18 22:00 09/01/18 22:03 Pepcid PO 20 mg QHS MELINDA Administration Ferrous Sulfate 325 mg 08/31/18 22:00 09/01/18 22:05 Feosol PO 325 mg BID MELINDA Administration Hydralazine HCl 5 mg 08/31/18 02:41 Apresoline IV Q6HR PRN Hypertension Piperacillin Sod/Tazobactam Sod 2.25 gm in 50 mls @ 100 mls/hr 08/31/18 01:00 09/02/18 01:44 Zosyn/Ns 2.25 Gm/50ml IV 50 mls/hr Q8H MELINDA Administration Protocol Insulin Glargine 30 units 08/31/18 22:00 09/01/18 22:05 Lantus SUB-Q 30 units QHS [facility] Administration Insulin Human Lispro 0 unit 08/31/18 07:30 09/02/18 07:57 Humalog SUB-Q Not Given ACHS [facility] Protocol Isosorbide Mononitrate 60 mg 08/31/18 10:00 09/01/18 11:57 Imdur PO 60 mg DAILY MELINDA Administration Lisinopril 40 mg 08/31/18 10:00 09/01/18 11:57 Zestril PO 40 mg DAILY MELINDA Administration Metoprolol Tartrate 50 mg 08/31/18 01:00 09/01/18 22:04 Lopressor PO 50 mg BID MELINDA Administration Multivit/Ca Carb/B Cmplx/FA/Prenat 1 cap 08/31/18 10:00 09/01/18 11:57 Renal Caps PO 1 cap QDAY MELINDA Administration Nifedipine 60 mg 08/31/18 01:00 09/01/18 22:04 Procardia Xl PO 60 mg BID MELINDA Administration Ondansetron HCl 4 mg 08/31/18 00:04 Zofran IV Q8H PRN Nausea And Vomiting Oxycodone/Acetaminophen 1 tab 08/31/18 00:04 09/02/18 08:02 Percocet 5/325 PO 1 tab Q6H PRN Administration Pain, Moderate (4-6) Peritoneal Dialysis Solution 2,000 ml 08/31/18 11:00 09/02/18 01:45 Dianeal Low Calcium W/1.5% Dextrose IP 2,000 ml BID@1100,1900 MELINDA Administration Peritoneal Dialysis Solution 2,000 ml 08/31/18 07:15 09/02/18 07:05 Dianeal Low Calcium W/2.5% Dextrose IP 2,000 ml BID@0700,1500 MELINDA Administration Sevelamer Carbonate 800 mg 08/31/18 08:00 09/02/18 08:02 Renvela PO 800 mg TIDWM MELINDA Administration Sodium Chloride 10 ml 08/31/18 10:00 09/01/18 22:07 Sodium Chloride Flush Syringe 10 Ml IV 10 ml BID MELINDA Administration Sodium Chloride 10 ml 08/31/18 00:04 Sodium Chloride Flush Syringe 10 Ml IV PRN PRN LINE FLUSH Torsemide 40 mg 08/31/18 10:00 09/01/18 11:56 Demadex PO 40 mg DAILY MELINDA Administration
[2018-09-02] MEDS: HALFPRIN EC PO SCH (09:20)
[2018-09-02] MEDS: ZESTRIL PO SCH (09:20)
[2018-09-02] MEDS: LOPRESSOR PO SCH ×2 (09:21→22:15)
[2018-09-02] MEDS: VITAMIN C PO SCH (09:21)
[2018-09-02] MEDS: FEOSOL PO SCH ×2 (09:24→22:15)
[2018-09-02] MEDS: IMDUR PO SCH (09:24)
[2018-09-02] MEDS: DEMADEX PO SCH (09:24)
[2018-09-02] MEDS: Renal Caps PO SCH (09:24)
[2018-09-02] MEDS: ROCALTROL PO SCH (09:25)
[2018-09-02] MEDS: SODIUM CHLORIDE FLUSH SYRINGE 10 ML IV SCH ×2 (09:25→22:17)
[2018-09-02] MEDS: PROCARDIA XL PO SCH ×2 (09:25→22:15)
[2018-09-02] MEDS: K-DUR PO SCH ×2 (09:35→14:10)
[2018-09-02] MEDS ORDERED: CARDURA PO SCH (22:00)
[2018-09-02] MEDS: PEPCID PO SCH (22:16)
[2018-09-02] MEDS: LANTUS SUB-Q SCH (22:17)
[2018-09-03] MEDS: ZOSYN/NS 2.25 GM/50ML 2.25 GM/50 ML BAG IV SCH ×2 (01:55→09:44)
[2018-09-03] MEDS: DIANEAL LOW CALCIUM W/2.5% DEXTROSE IP SCH (07:55)
[2018-09-03] MEDS: RENVELA PO SCH ×2 (08:06→11:42)
[2018-09-03] MEDS: HumaLOG SUB-Q SCH ×2 (08:11→11:42)
[2018-09-03] MEDS: VITAMIN C PO SCH (09:36)
[2018-09-03] MEDS: HALFPRIN EC PO SCH (09:36)
[2018-09-03] MEDS: Renal Caps PO SCH (09:36)
[2018-09-03] MEDS: FEOSOL PO SCH (09:36)
[2018-09-03] MEDS: PROCARDIA XL PO SCH (09:37)
[2018-09-03] MEDS: IMDUR PO SCH (09:37)
[2018-09-03] MEDS: LOPRESSOR PO SCH (09:38)
[2018-09-03] MEDS: ZESTRIL PO SCH (09:44)
[2018-09-03] MEDS: ROCALTROL PO SCH (09:44)
[2018-09-03] MEDS: SODIUM CHLORIDE FLUSH SYRINGE 10 ML IV SCH (09:45)
--- NOTE | 2018-09-03 10:12 | Progress Note ---
Assessment and Plan 1. PD exit site infection: S/p I&D. Wound cultures - E.Coli. Continue Zosyn. PD fluid WBC 17. 2. ESRD: Continue manual exchanges while in the hospital. Total of 4 exchanges with 2 bags of each 2.5% and 1.5% solution. 3. FE: Monitor. 4. Uncontrolled HTN: BP is better. Monitor BP. UF with PD. 5. DM type 2. Subjective Date of service: 09/03/18 Interval history: Patient is feeling better. Objective - Vital Signs Vital signs: Vital Signs - 12hr 09/02/18 09/02/18 09/03/18 22:15 22:16 02:10 Temperature 98.3 F Pulse Rate 65 65 59 L Pulse Rate [ From Monitor] Respiratory 20 Rate Blood Pressure 151/81 151/81 146/72 O2 Sat by Pulse 98 Oximetry 09/03/18 09/03/18 09/03/18 07:21 08:22 09:37 Temperature 97.8 F Pulse Rate 68 76 Pulse Rate [ 68 From Monitor] Respiratory 18 18 Rate Blood Pressure 139/70 143/70 O2 Sat by Pulse 98 98 Oximetry 09/03/18 09:38 Temperature Pulse Rate 76 Pulse Rate [ From Monitor] Respiratory Rate Blood Pressure 143/70 O2 Sat by Pulse Oximetry - General Appearance General appearance: well-developed, well-nourished, appears stated age, other (not in distress) EENT: ATNC, PERRL, mucous membranes moist, hearing intact, vision intact Neck: supple Respiratory: Present: Clear to Ascultation Cardiology: regular, S1S2, no murmurs Gastrointestinal: other (PEG tube noted) Integumentary: no rash, warm and dry Neurologic: no focal deficit, no asterixis, alert and oriented x3 Musculoskeletal: other (no edema) Psychiatric: cooperative - Lab 09/01/18 05:41 09/03/18 09:18 Most recent lab results Calcium 8.6 mg/dL (8.4-10.2) 09/02/18 05:07 Phosphorus 3.60 mg/dL (2.5-4.5) 08/31/18 08:19 Medications & Allergies - Medications Allergies/Adverse Reactions: Allergies epoetin randi Allergy (Verified 06/14/18 12:02) Rash Home Medications: Home Medications Medication Instructions Recorded Confirmed Last Taken Type Aspirin [Aspirin Enteric Coated] 81 mg PO DAILY 07/06/13 08/30/18 08/30/18 History Insulin Glargine,Hum.rec.anlog 30 unit SQ QHS 07/06/13 08/30/18 08/30/18 History [Lantus Solostar] Metoprolol [Lopressor TAB] 50 mg PO BID 07/06/13 08/30/18 08/30/18 History Sevelamer Carbonate [Renvela] 800 mg PO TIDWM 07/06/13 08/30/18 08/30/18 History AtorvaSTATin [Lipitor] 40 mg PO HS 07/05/16 08/30/18 08/30/18 History Calcitriol [Rocaltrol] 0.5 mcg PO QDAY 07/05/16 08/30/18 08/30/18 History Ferrous Sulfate [Slow Release Iron 65 mg PO DAILY 07/05/16 08/31/18 07/04/16 History 47.5 Mg tab] 65mg NIFEdipine [Nifedipine ER] 60 mg PO BID 07/05/16 08/30/18 08/30/18 History Torsemide 40 mg PO DAILY 07/05/16 08/30/18 08/30/18 History Benzonatate [Tessalon Perles] 100 mg PO Q8HR PRN #30 capsule 08/21/17 08/30/18 08/30/18 Rx Ascorbic Acid [Vitamin C] 500 mg PO DAILY 02/21/18 08/30/18 08/30/18 History Famotidine 20 mg PO QHS 02/21/18 08/30/18 08/30/18 History ISOSORBIDE MONOnitrate [Imdur ER] 60 mg PO DAILY 02/21/18 08/30/18 08/30/18 History Lisinopril 40 mg PO DAILY 02/21/18 08/30/18 08/30/18 History Vit B Comp No.3/Folic/C/Biotin 1 tab PO DAILY 02/21/18 08/30/18 08/30/18 History [Nephro-Doreen Rx Tablet] cefUROXime [Ceftin] 250 mg PO Q12H #20 tablet 09/03/18 Unknown Rx Active Medications: Generic Name Dose Route Start Last Admin Trade Name Freq PRN Reason Stop Dose Admin Acetaminophen 650 mg 03/02/19 00:04 Tylenol PO Q4H PRN Pain MILD(1-3)/Fever >100.5/KENNEDY Ascorbic Acid 500 mg 08/31/18 10:00 09/03/18 09:36 Vitamin C PO 500 mg DAILY [facility] Administration Aspirin 81 mg 08/31/18 10:00 09/03/18 09:36 Halfprin Ec PO 81 mg DAILY [facility] Administration Atorvastatin Calcium 40 mg 08/31/18 22:00 09/02/18 22:15 Lipitor PO 40 mg HS [facility] Administration Benzonatate 100 mg 08/31/18 00:00 08/31/18 16:06 Tessalon Perles PO 100 mg Q8HR PRN Administration Cough Calcitriol 0.5 mcg 08/31/18 10:00 09/03/18 09:44 Rocaltrol PO 0.5 mcg QDAY [facility] Administration Doxazosin Mesylate 4 mg 09/02/18 22:00 09/02/18 22:16 Cardura PO 4 mg QHS [facility] Administration Famotidine 20 mg 08/31/18 22:00 09/02/18 22:16 Pepcid PO 20 mg QHS [facility] Administration Ferrous Sulfate 325 mg 08/31/18 22:00 09/03/18 09:36 Feosol PO 325 mg BID [facility] Administration Hydralazine HCl 5 mg 08/31/18 02:41 Apresoline IV Q6HR PRN Hypertension Piperacillin Sod/Tazobactam Sod 2.25 gm in 50 mls @ 100 mls/hr 08/31/18 01:00 09/03/18 09:44 Zosyn/Ns 2.25 Gm/50ml IV 50 mls/hr Q8H [facility] Administration Protocol Insulin Glargine 30 units 08/31/18 22:00 09/02/18 22:17 Lantus SUB-Q 30 units QHS [facility] Administration Insulin Human Lispro 0 unit 08/31/18 07:30 09/03/18 08:11 [facility] Protocol Isosorbide Mononitrate 60 mg 08/31/18 10:00 09/03/18 09:37 Imdur PO 60 mg DAILY [facility] Administration Lisinopril 40 mg 08/31/18 10:00 09/03/18 09:44 Zestril PO Not Given DAILY [facility] Metoprolol Tartrate 50 mg 08/31/18 01:00 09/03/18 09:38 Lopressor PO 50 mg BID MELINDA Administration Multivit/Ca Carb/B Cmplx/FA/Prenat 1 cap 08/31/18 10:00 09/03/18 09:36 Renal Caps PO 1 cap QDAY MELINDA Administration Nifedipine 60 mg 08/31/18 01:00 09/03/18 09:37 Procardia Xl PO 60 mg BID MELINDA Administration Ondansetron HCl 4 mg 08/31/18 00:04 Zofran IV Q8H PRN Nausea And Vomiting Oxycodone/Acetaminophen 1 tab 08/31/18 00:04 09/02/18 22:16 Percocet 5/325 PO 1 tab Q6H PRN Administration Pain, Moderate (4-6) Peritoneal Dialysis Solution 2,000 ml 08/31/18 11:00 09/02/18 21:30 Dianeal Low Calcium W/1.5% Dextrose IP Not Given BID@1100,1900 MELINDA Peritoneal Dialysis Solution 2,000 ml 08/31/18 07:15 09/03/18 07:55 Dianeal Low Calcium W/2.5% Dextrose IP 2,000 ml BID@0700,1500 MELINDA Administration Sevelamer Carbonate 800 mg 08/31/18 08:00 09/03/18 08:06 Renvela PO 800 mg TIDWM MELINDA Administration Sodium Chloride 10 ml 08/31/18 10:00 09/03/18 09:45 Sodium Chloride Flush Syringe 10 Ml IV 10 ml BID MELINDA Administration Sodium Chloride 10 ml 08/31/18 00:04 Sodium Chloride Flush Syringe 10 Ml IV PRN PRN LINE FLUSH Torsemide 40 mg 08/31/18 10:00 09/02/18 09:24 Demadex PO 40 mg DAILY MELINDA Administration
[2018-09-03] MEDS: DEMADEX PO SCH (10:41)
[2018-09-03] MEDS: DIANEAL LOW CALCIUM W/1.5% DEXTROSE IP SCH (11:31)
--- NOTE | 2018-09-03 13:20 | Discharge Summary ---
Providers - Providers Date of Admission: 08/30/18 19:03 Date of discharge: 09/03/18 Attending physician: ALEXIS DIAS 08/30/18 17:32 Consult to Physician [CONS] Urgent Comment: Consulting Provider: TERESA VARGAS Physician Instructions: Reason For Exam: infected pd catheter Consult to Physician [CONS] Urgent Comment: DR ROLAND NOTIFIED 1725 Consulting Provider: CAIN ROLAND Physician Instructions: Reason For Exam: infected pd catheter [facility] Reason for admission: Abdominal wall cellulitis/Abscess Condition: Good Pertinent studies: CT abdomen and pelvis Procedures: I & D abdominal wall abscess PD per schedule Hospital course: 68yo F admitted with abdominal wall cellulitis / abscess near her PD catheter exit site. Managed with emperic antibiotics evaluated by surgery,had I & D, received wound care. Wound cultures positive for Ecoli., Patient was evaluated by Renal,received PD per schedule Today patient is comfortable,no new complaints,vital signs stable,physical exam is unremarkable. Cleared by Surgery to discharge and f/u out pt upon dc Discharge Diagnosis: --Abdominal wall cellulitis/abscess [PD catheter exit site wound /abscess] s/p I&D empiric antibiotics and, wound care, --Ecoli wound infection : pansensitive continue Zosyn. Discharge on oral antibiotics --End-stage renal disease on peritoneal dialysis; nephrology evaluated PD per scheduled --Hypokalemia; replace per protocol and monitor levels --Accelerated hypertension; continue current antihypertensives When necessary medications --Type 2 diabetes mellitus; Accu-Chek sliding scale coverage and ADA diet and Long-acting insulin, hemoglobin A1c 8.3 --DVT prophylaxis; heparin and renal dose Patient stable at discharge. Disposition: DC/[place]-06 HOME UNDER HOME [facility] Time spent for discharge: 32 min Core Measure Documentation - Palliative Care Palliative Care/ Comfort Measures: Not Applicable - Core Measures Any of the following diagnoses?: none Exam - Constitutional Vitals: Temp Pulse Resp BP Pulse Ox 97.8 F 68 18 143/70 98 09/03/18 07:21 09/03/18 10:00 09/03/18 10:00 09/03/18 09:38 09/03/18 10:00 General appearance: Present: no acute distress, well-nourished - EENT Eyes: Present: PERRL, EOM intact - Neck Neck: Present: supple, normal ROM - Respiratory Respiratory effort: normal Respiratory: bilateral: diminished, negative: rales, rhonchi, wheezing - Cardiovascular Rhythm: regular Heart Sounds: Present: S1 & S2 - Extremities Extremities: no ischemia, No edema - Abdominal General gastrointestinal: Present: soft, non-tender, non-distended, normal bowel sounds - Integumentary Integumentary: Present: clear, warm - Musculoskeletal Musculoskeletal: strength equal bilaterally - Psychiatric Psychiatric: appropriate mood/affect, cooperative - Neurologic Neurologic: CNII-XII intact, moves all extremities Plan Activity: no restrictions Diet: renal Wound: per wound nurse instructions Additional Instructions: f/u Gen Surgeon if needed. PD per schedule, f/u Nephrology per schedule Follow up with: ELVIRA ALVARADOSOUTH HOLLAND MD GALLO [Primary Care Provider] - 3-5 Days TERESA VARGAS MD [Staff Physician] - 7 Days Prescriptions: cefUROXime [Ceftin] 250 mg PO Q12H #20 tablet
[2018-09-03 15:22] VITALS: BP 152/81
== END 2018-09-03 14:10 | disposition home health service (06) | DRG 907 ==
LOC: ED 14:21 → 2B-ACE 19:03 → 4A 08-31 07:35 → 2B-ACE 09-01 14:22
PROVIDERS: ADMIT Internal Medicine; ATTEND Internal Medicine
PROC: 0J980ZZ Drainage of Abdomen Subcutaneous Tissue and Fascia, Open Approach (ICD-10-PCS; principal; 2018-08-31)
DX: T85.71XA Infection and inflammatory reaction due to peritoneal dialysis catheter, initial encounter (principal); N18.6 End stage renal disease; L03.311 Cellulitis of abdominal wall; I13.2 Hypertensive heart and chronic kidney disease with heart failure and with stage 5 chronic kidney disease, or end stage renal disease; E87.6 Hypokalemia; E11.22 Type 2 diabetes mellitus with diabetic chronic kidney disease; I25.10 Atherosclerotic heart disease of native coronary artery without angina pectoris; B96.20 Unspecified Escherichia coli [E. coli] as the cause of diseases classified elsewhere; Y83.8 Other surgical procedures as the cause of abnormal reaction of the patient, or of later complication, without mention of misadventure at the time of the procedure; I50.9 Heart failure, unspecified; Y92.89 Other specified places as the place of occurrence of the external cause; Z79.899 Other long term (current) drug therapy; Z79.4 Long term (current) use of insulin; Z82.49 Family history of ischemic heart disease and other diseases of the circulatory system; Z79.82 Long term (current) use of aspirin
CPT/HCPCS: 36415; 74176; 80048; 80053; 80202; 82040; 82140; 82947; 82962; 83036; 84100; 84132; 85025; 87040; 87076; 87116; 87186; 89051; G0378; A9270-GY; J0360; J0696; J1170; J1815; J2405; J2543; J3370

== ENCOUNTER 2019-02-09 12:15 | Emergency (ER) | payer MEDICARE ==
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
[2019-02-09 12:37] VITALS: BP 186/85
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
[2019-02-09] MEDS ORDERED: TORADOL IM ONE (15:17)
[2019-02-09] MEDS ORDERED: FLEXERIL PO ONE (15:17)
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
== END 2019-02-09 17:48 | disposition home or self-care (01) ==
LOC: ED 12:15
DX: S92.101A Unspecified fracture of right talus, initial encounter for closed fracture (principal); I11.0 Hypertensive heart disease with heart failure; I50.9 Heart failure, unspecified; E11.9 Type 2 diabetes mellitus without complications; I48.91 Unspecified atrial fibrillation; Z87.442 Personal history of urinary calculi; Z79.82 Long term (current) use of aspirin; Z79.4 Long term (current) use of insulin; Z79.899 Other long term (current) drug therapy; Z88.8 Allergy status to other drugs, medicaments and biological substances; Z98.890 Other specified postprocedural states; V89.2XXA Person injured in unspecified motor-vehicle accident, traffic, initial encounter; Y93.89 Activity, other specified; Y92.488 Other paved roadways as the place of occurrence of the external cause; Y99.8 Other external cause status
CPT/HCPCS: 73610; 73630; 96372; 99284; J1885

== ENCOUNTER 2019-07-01 11:41 | Observation (INO) | payer MEDICARE ==
--- NOTE | 2019-07-01 12:12 | Event Note ---
ED Screening Note ED Screening Note: states that [facility] advised to be seen in the ED for low blood count she goes M[facility] states she feels lightheaded PMHx ESRD no allergies to meds denies any bleeding from her port no melena, no hematochezia This initial assessment/diagnostic orders/clinical plan/treatment(s) is/are subject to change based on patients health status, clinical progression and re- assessment by fellow clinical providers in the ED. Further treatment and workup at subsequent clinical providers discretion. Patient/guardian urged not to elope from the ED as their condition may be serious if not clinically assessed and managed. Initial orders include: labs
[2019-07-01 13:48] LABS: Basophils % (Auto) 0.4 % (0.0-1.8); Eosinophils % (Auto) 0.1 % (0.0-4.3); Hemoglobin 6.4 gm/dl (10.1-14.3); Lymphocytes # (Auto) 1.1 K/mm3 (1.2-5.4); Lymphocytes % (Auto) 10.2 % (13.4-35.0); Mean Corpuscular HGB Conc 33 % (30-34); Mean Corpuscular Volume 86 fl (79-97); Monocytes # (Auto) 1.1 K/mm3 (0.0-0.8); Monocytes % (Auto) 10.2 % (0.0-7.3); Platelet Count 509 K/mm3 (140-440); Red Blood Count 2.26 M/mm3 (3.65-5.03)
[2019-07-01 13:51] LABS: Red Cell Distribution Width 24.7 % (13.2-15.2)
[2019-07-01 13:54] LABS: Hematocrit 19.6 % (30.3-42.9)
[2019-07-01 14:13] LABS: Albumin 2.5 g/dL (3.9-5); Calcium 9.1 mg/dL (8.4-10.2)
[2019-07-01] MEDS ORDERED: SODIUM CHLORIDE 0.9% 500 ML 500 ML IV ONE (14:26)
--- NOTE | 2019-07-01 14:33 | Emergency Department Report ---
ED Recheck HPI - General Chief Complaint: Recheck/Abnormal Lab/Rx Stated Complaint: BLOOD TRANSFUSION Time Seen by Provider: 07/01/19 12:10 Source: patient Mode of arrival: Ambulatory Limitations: No Limitations - History of Present Illness Initial Comments: 69-year-old female with history of ESRD, last dialyzed yesterday ([facility] dialysis schedule), presents to the ED with low hemoglobin. Patient states she was called by the dialysis clinic and told that she had a hemoglobin of 6.1 and that she needed to come to the ER for transfusion. Patient denies history of anemia in the past. She denies any melena or bright red blood in stool. Patient denies any chest pain, dizziness, shortness of breath. She only reports that she feels tired all the time. Patient stays she recently switched from peritoneal dialysis to hemodialysis approximately one month ago. Receiving Weigher: Dari[place] BECK Complaint: abnormal lab -: This morning Returns Today for: CBOAL Symptoms Since Prior Visit: no new symptoms Context: called for abnorm lab res Associated Symptoms: denies: chest pain, shortness of breath - Related Data Home Medications Medication Instructions Recorded Confirmed Last Taken AtorvaSTATin [Lipitor] 40 mg PO QHS 07/01/19 07/01/19 06/30/19 Benzonatate [Tessalon Perles] 100 mg PO Q8HR 07/01/19 07/01/19 06/30/19 Insulin Glargine,Hum.rec.anlog 30 unit SQ QHS 07/01/19 07/01/19 06/30/19 [Basaglar Kwikpen U-100] Metoprolol [Lopressor TAB] 50 mg PO BID 07/01/19 07/01/19 06/30/19 NIFEdipine [Nifedipine ER] 60 mg PO BID 07/01/19 07/01/19 06/30/19 Torsemide [Demadex] 40 mg PO QDAY 07/01/19 07/01/19 06/30/19 Vit B Comp No.3/Folic/C/Biotin 1 each PO QDAY 07/01/19 07/01/19 06/30/19 [Nephro-Doreen Rx Tablet] calcitrioL [Rocaltrol] 0.5 mcg PO QDAY 07/01/19 07/01/19 06/30/19 Allergies Allergy/AdvReac Type Severity Reaction Status Date / Time No Known Allergies Allergy Verified 07/01/19 14:57 ED Review of Systems ROS: Stated complaint: BLOOD TRANSFUSION Other details as noted in HPI Comment: All other systems reviewed and negative Respiratory: denies: shortness of breath Cardiovascular: denies: chest pain Gastrointestinal: denies: nausea, vomiting, hematemesis, melena, hematochezia ED Past Medical Hx - Past Medical History Previous Medical History?: Yes Hx Hypertension: Yes Hx Congestive Heart Failure: Yes Hx Diabetes: Yes Hx Renal Disease: Yes Additional medical history: ?heart condition. AFIB. PSVT - Surgical History Past Surgical History?: Yes Hx Breast Surgery: Yes Additional Surgical History: Peritoneal dialysis. right breast surgery, benign lump removal - Social History Smoking Status: Never Smoker Substance Use Type: None - Medications Home Medications: Home Medications Medication Instructions Recorded Confirmed Last Taken Type AtorvaSTATin [Lipitor] 40 mg PO QHS 07/01/19 07/01/19 06/30/19 History Benzonatate [Tessalon Perles] 100 mg PO Q8HR 07/01/19 07/01/19 06/30/19 History Insulin Glargine,Hum.rec.anlog 30 unit SQ QHS 07/01/19 07/01/19 06/30/19 History [Basaglar Kwikpen U-100] Metoprolol [Lopressor TAB] 50 mg PO BID 07/01/19 07/01/19 06/30/19 History NIFEdipine [Nifedipine ER] 60 mg PO BID 07/01/19 07/01/19 06/30/19 History Torsemide [Demadex] 40 mg PO QDAY 07/01/19 07/01/19 06/30/19 History Vit B Comp No.3/Folic/C/Biotin 1 each PO QDAY 07/01/19 07/01/19 06/30/19 History [Nephro-Doreen Rx Tablet] calcitrioL [Rocaltrol] 0.5 mcg PO QDAY 07/01/19 07/01/19 06/30/19 History ED Physical Exam - General Limitations: No Limitations General appearance: alert, in no apparent distress - Head Head exam: Present: atraumatic, normocephalic - Eye Eye exam: Present: normal appearance, EOMI - ENT ENT exam: Present: mucous membranes moist - Neck Neck exam: Present: normal inspection - Respiratory Respiratory exam: Present: normal lung sounds bilaterally. Absent: respiratory distress - Cardiovascular Cardiovascular Exam: Present: regular rate, normal rhythm - GI/Abdominal GI/Abdominal exam: Present: soft. Absent: distended, tenderness - Rectal Rectal exam: Present: heme (-) stool - Extremities Exam Extremities exam: Present: normal inspection - Neurological Exam Neurological exam: Present: alert, oriented X3 - Psychiatric Psychiatric exam: Present: normal affect, normal mood - Skin Skin exam: Present: warm, dry, intact, normal color ED Course Vital Signs 07/01/19 07/01/19 07/01/19 12:11 14:40 14:45 Temperature 98.6 F Pulse Rate 101 H 97 H 111 H Respiratory 20 15 22 Rate Blood Pressure 155/74 140/71 Blood Pressure [Left] O2 Sat by Pulse 100 98 100 Oximetry 07/01/19 07/01/19 07/01/19 14:46 15:00 15:15 Temperature Pulse Rate 98 H Respiratory 15 10 L 10 L Rate Blood Pressure 139/73 144/72 Blood Pressure 144/68 [Left] O2 Sat by Pulse 98 Oximetry 07/01/19 07/01/19 07/01/19 15:30 15:45 16:00 Temperature Pulse Rate Respiratory 18 22 21 Rate Blood Pressure 136/71 138/71 140/75 Blood Pressure [Left] O2 Sat by Pulse 97 Oximetry 07/01/19 07/01/19 07/01/19 16:15 16:30 16:45 Temperature Pulse Rate Respiratory 22 15 14 Rate Blood Pressure 143/74 137/74 143/72 Blood Pressure [Left] O2 Sat by Pulse 97 98 97 Oximetry 07/01/19 07/01/19 07/01/19 17:00 17:15 17:30 Temperature Pulse Rate Respiratory 20 20 19 Rate Blood Pressure 143/71 145/72 140/78 Blood Pressure [Left] O2 Sat by Pulse 98 97 96 Oximetry 07/01/19 07/01/19 07/01/19 17:45 18:00 18:15 Temperature Pulse Rate Respiratory 15 20 33 H Rate Blood Pressure 142/69 144/70 143/71 Blood Pressure [Left] O2 Sat by Pulse 97 97 96 Oximetry 07/01/19 18:50 Temperature 98.5 F Pulse Rate 96 H Respiratory 16 Rate Blood Pressure 144/72 Blood Pressure [Left] O2 Sat by Pulse Oximetry - Consultations Consultation #1: 07/01/19 16:28 Spoke w/ DETAIL TECHNICIAN for Dr Theodore. Will see pt. ED Recheck MDM - Medical Decision Making 69 yo F w/ new onset anemia. Stool guiac negative. Recently switched from PD to hemodialysis. Hb 6.4 currently. Spoke w/ nephrology, will transfuse during dialysis so as not to fluid overload pt. Will admit to hospitalist. Critical care attestation.: If time is entered above; I have spent that time in minutes in the direct care of this critically ill patient, excluding procedure time. ED Disposition Clinical Impression: Anemia Disposition: DC- OP ADMIT IP TO THIS HOSP Is pt being admited?: Yes Condition: Stable Time of Disposition: 16:14
[2019-07-01] MEDS ORDERED: SODIUM CHLORIDE 0.9% 100 ML IV PRN (17:48)
--- NOTE | 2019-07-01 17:53 | Consultation ---
History of Present Illness - Reason for Consult Consult date: 07/01/19 end stage renal disease Requesting physician: TY CRAWFORD - History of Present Illness This is a 69 y/o F with PMH of ESRD on HD for the past month, previously on PD, PD catheter removed over 1 month ago due to peritonitis, HTN, secondary hyperparathyroidism, and anemia who [facility] due to low Hgb level. Pt states she was instructed to come to ED by dialysis clinic for further evaluation of anemia. Pt had Hgb level of 6.1 at her outpatient dialysis center and was found to have Hgb level of 6.4 in ED. Pt c/o feeling tired, otherwise denies shortness of breath, nausea, vomiting, black or bloody stool, chest pain, or abdominal pain. This pt undergoes outpatient HD center every [facility] on [address] every [facility], last HD treatment was yesterday. We were consulted to evaluate this pt who has ESRD. Plan is for pt to receive 1 unit of pRBCs during HD. I spoke with dialysis nurse, will dialyze today and transfuse 1 unit of pRBCs during HD. Past History Past Medical History: anemia, dialysis, ESRD Medications and Allergies Allergies Allergy/AdvReac Type Severity Reaction Status Date / Time No Known Allergies Allergy Verified 07/01/19 14:57 Home Medications Medication Instructions Recorded Confirmed Last Taken Type AtorvaSTATin [Lipitor] 40 mg PO QHS 07/01/19 07/01/19 06/30/19 History Benzonatate [Tessalon Perles] 100 mg PO Q8HR 07/01/19 07/01/19 06/30/19 History Insulin Glargine,Hum.rec.anlog 30 unit SQ QHS 07/01/19 07/01/19 06/30/19 History [Basaglar Kwikpen U-100] Metoprolol [Lopressor TAB] 50 mg PO BID 07/01/19 07/01/19 06/30/19 History NIFEdipine [Nifedipine ER] 60 mg PO BID 07/01/19 07/01/19 06/30/19 History Torsemide [Demadex] 40 mg PO QDAY 07/01/19 07/01/19 06/30/19 History Vit B Comp No.3/Folic/C/Biotin 1 each PO QDAY 07/01/19 07/01/1919 History [Nephro-Doreen Rx Tablet] calcitrioL [Rocaltrol] 0.5 mcg PO QDAY 07/01/19 07/01/19 06/30/19 History Active Meds: Active Medications Sodium Chloride (Nacl 0.9%) 100 mls @ 999 mls/hr IV SAGE PRN PRN Reason: Hypotension Review of Systems Constitutional: fatigue, weakness, no fever Cardiovascular: no chest pain, no shortness of breath, no dyspnea on exertion Respiratory: no shortness of breath, no dyspnea on exertion Gastrointestinal: no abdominal pain, no nausea, no vomiting, no diarrhea, no hematemesis, no coffee ground emesis, no melena Integumentary: no wounds Neurological: no change in speech Psychiatric: no depression Exam - Vital Signs Vital signs: Vital Signs Temp Pulse Resp BP Pulse Ox 98.6 F 101 H 20 155/74 100 07/01/19 12:11 07/01/19 12:11 07/01/19 12:11 07/01/19 12:11 07/01/19 12:11 - General Appearance General appearance: well-developed EENT: ATNC Neck: Present: neck supple Respiratory: Decreased Breath Sounds Heart: regular, S1S2, other (ACCESS: Right IJ Perm Catheter intact) Gastrointestinal: Present: normoactive bowel sounds. Absent: tenderness Integumentary: warm and dry Neurologic: alert and oriented x3 Musculoskeletal: Present: other (no edema to BLE) Psychiatric: mood/affect appropriate, cooperative Results - Lab Results 07/01/19 12:33 07/01/19 12:33 Most recent lab results Calcium 9.1 mg/dL (8.4-10.2) 07/01/19 12:33 Assessment and Plan ESRD on HD Anemia HTN DM Type on insulin Secondary Hyperparathyroidism Hx of peritonitis - s/p PD catheter removal and transition to HD Plan: - HD today for gentle UF and clearance via left perm catheter - Transfuse 1 unit of pRBCs during HD today - Assess need for HD on daily basis - Ok for pt to be discharged home from nephrology standpoint after HD if medically cleared - Renally dose meds - This pt undergoes outpatient HD at [facility] Dialysis every MWF - Renal plan d/w Dr Theodore
[2019-07-01 19:52] LABS: Hepatitis B Surface Antigen Non-Reactive (Negative); Hepatitis C Virus Antibody Non-Reactive (NonReactive)
[2019-07-01] MEDS ORDERED: SODIUM CHLORIDE*PRIMING MACHINE ONLY FOR DIALYSIS MC ONE (20:54)
[2019-07-01] MEDS ORDERED: ONDANSETRON 4 MG/2 ML INJ IV PRN (22:36)
[2019-07-01] MEDS ORDERED: ACETAMINOPHEN 325 MG TAB PO PRN (22:36)
--- NOTE | 2019-07-01 22:36 | History and Physical Report ---
History of Present Illness Date of admission: 07/01/19 16:14 History of present illness: 69-year-old woman with history of end-stage renal disease on dialysis Sunday, Sunday, diabetes, hyperlipidemia, hypertension was sent to the emergency room by her broadcast engineer because of anemia. Patient states that the nurse called her yesterday with abnormal lab value told her to go to the emergency room to be transfused. She is asymptomatic. Complaining of a cough x3 days productive of white phlegm, no fever or chills Review Of Systems: Constitutional: no weight loss, fever, chills Ears, eyes, nose, mouth and throat: no nasal congestion, no nasal discharge, no sinus pressure, blurry vision, diplopia Neck: No neck pain or rigidity. Cardiovascular: No palpitations, chest pain Respiratory: No shortness of breath, cough Gastrointestinal: No hematochezia, abdominal pain Genitourinary : no dysuria, frequency Musculoskeletal: no muscle ache , joint pain Integumentary: no rash, no pruritis Neurological: no parathesias, focal weakness Endocrine: no cold or heat intolerance, no polyuria or polydipsia Hematologic/Lymphatic: no easy bruising, no easy bleeding, no gland swelling Allergic/Immunologic: no urticaria, no angioedema. PAST MEDICAL HISTORY: end-stage renal disease on dialysis Sunday, , diabetes, hyperlipidemia, hypertension PAST SURGICAL HISTORY: Lump removed from the breast which was benign, AV fistula SOCIAL HISTORY: Denies alcohol, tobacco, drugs FAMILY HISTORY: Hypertension Past History Past Medical History: anemia, dialysis, ESRD Medications and Allergies Allergies Allergy/AdvReac Type Severity Reaction Status Date / Time No Known Allergies Allergy Verified 07/01/19 14:57 Home Medications Medication Instructions Recorded Confirmed Last Taken Type AtorvaSTATin [Lipitor] 40 mg PO QHS 07/01/19 07/01/19 06/30/19 History Benzonatate [Tessalon Perles] 100 mg PO Q8HR 07/01/19 07/01/19 06/30/19 History Insulin Glargine,Hum.rec.anlog 30 unit SQ QHS 07/01/19 07/01/19 06/30/19 History [Basaglar Kwikpen U-100] Metoprolol [Lopressor TAB] 50 mg PO BID 07/01/19 07/01/19 06/30/19 History NIFEdipine [Nifedipine ER] 60 mg PO BID 07/01/19 07/01/19 06/30/19 History Torsemide [Demadex] 40 mg PO QDAY 07/01/19 07/01/19 06/30/19 History Vit B Comp No.3/Folic/C/Biotin 1 each PO QDAY 07/01/19 07/01/19 06/30/19 History [Nephro-Doreen Rx Tablet] calcitrioL [Rocaltrol] 0.5 mcg PO QDAY 07/01/19 07/01/19 06/30/19 History Active Meds: Active Medications Sodium Chloride (Nacl 0.9%) 100 mls @ 999 mls/hr IV SAGE PRN PRN Reason: Hypotension Exam - Physical Exam Narrative exam: Gen. appearance: Patient lying in bed, no apparent distress HEENT: Normocephalic, atraumatic, pupils equally round and reactive to light, extraocular movement intact, and no sclericterus,. No JVD or thyromegaly or nodule,neck supple, no carotid bruit ,mucous membranes moist, no exudate or erythema Heart: S1, S2, regular rate and rhythm Lungs: Clear bilaterally, breathing comfortable Abdomen: Positive bowel sounds, nontender, nondistended, no organomegaly Extremity: no edema, cyanosis, clubbing Skin: No rash, nodules, warm, dry Neuro: speech is fluent, moves extremities, sensory intact - Constitutional Vitals: Temp Pulse Resp BP Pulse Ox 98.7 F 100 H 16 148/76 96 07/01/19 20:30 07/01/19 22:00 07/01/19 20:30 07/01/19 22:00 07/01/19 18:15 Results - Labs CBC & Chem 7: 07/02/19 04:08 07/02/19 05:08 Labs: Abnormal lab results 07/01/19 07/01/19 07/01/19 Range/Units 12:33 12:33 15:01 RBC 2.26 L (3.65-5.03) M/mm3 Hgb 6.4 L (10.1-14.3) gm/dl Hct 19.6 L* (30.3-42.9) % RDW 24.7 H (13.2-15.2) % Plt Count 509 H (140-440) K/mm3 Lymph % (Auto) 10.2 L (13.4-35.0) % [place] % (Auto) 10.2 H (0.0-7.3) % Lymph # 1.1 L (1.2-5.4) K/mm3 [place] # 1.1 H (0.0-0.8) K/mm3 Seg Neutrophils % 79.1 H (40.0-70.0) % Seg Neutrophils # 8.5 H (1.8-7.7) K/mm3 Creatinine 5.3 H (0.7-1.2) mg/dL Albumin 2.5 L (3.9-5) g/dL Crossmatch See Detail Assessment and Plan Assessment Anemia of chronic disease, acute on chronic Transfuse packed red blood cells at dialysis End-stage renal disease The patient will go for dialysis today Renal was consulted to see the patient Cough Obtain chest x-ray Diabetes Check fingersticks initiate insulin sliding scale Hypertension Continue appropriate outpatient medications DVT prophylaxis
--- NOTE | 2019-07-01 23:48 | XRay Report ---
CHEST 1 VIEW INDICATION: cough COMPARISON: 02/21/2018 FINDINGS: Support devices: Perm catheter has been placed and is projected over the superior vena cava, tip at t he atriocaval junction level. Heart: Normal and unchanged Lungs/Pleura: Mild bibasilar atelectasis, slightly more prominent on the right, but no convincing isac dence of acute disease. IMPRESSION: 1. No acute disease. Signer Name: João Antohny MD Signed: 07/01/2019 11:43 PM Workstation Name: [id number]
[2019-07-02] MEDS ORDERED: levoFLOXacin 500 MG TAB PO ONE (04:15)
[2019-07-02 05:31] LABS: Hematocrit 23.7 % (30.3-42.9); Hemoglobin 7.7 gm/dl (10.1-14.3); Mean Corpuscular HGB Conc 33 % (30-34); Mean Corpuscular Volume 86 fl (79-97); Platelet Count 435 K/mm3 (140-440); Red Blood Count 2.76 M/mm3 (3.65-5.03)
[2019-07-02 05:43] LABS: Red Cell Distribution Width 21.8 % (13.2-15.2)
[2019-07-02 05:56] LABS: Calcium 8.9 mg/dL (8.4-10.2)
[2019-07-02 06:58] LABS: Anisocytosis 1+; Band Neutrophils # (Manual) 0.1 K/mm3; Basophils % (Manual) 0 % (0.0-1.8); Eosinophils % (Manual) 0 % (0.0-4.3); Platelet Estimate Consistent w Auto; Total Cells Counted 100
--- NOTE | 2019-07-02 10:41 | Progress Note ---
Assessment and Plan ESRD on HD Anemia HTN DM Type on insulin Secondary Hyperparathyroidism Hx of peritonitis - s/p PD catheter removal and transition to HD Plan: - HD today for gentle UF and clearance via left perm catheter - Assess need for HD on daily basis - Ok for pt to be discharged home from nephrology standpoint after HD if medically cleared - Renally dose meds - This pt undergoes outpatient HD at [facility] Dialysis every MWF William Will MD [phone] Subjective Date of service: 07/02/19 Interval history: HD today. Objective - Exam Narrative Exam: General appearance: well-developed EENT: ATNC Neck: Present: neck supple Respiratory: Decreased Breath Sounds Heart: regular, S1S2, other (ACCESS: Right IJ Perm Catheter intact) Gastrointestinal: Present: normoactive bowel sounds. Absent: tenderness Integumentary: warm and dry Neurologic: alert and oriented x3 Musculoskeletal: Present: other (no edema to BLE) Psychiatric: mood/affect appropriate, cooperative - Vital Signs Vital signs: Vital Signs - 12hr 07/01/19 07/02/19 07/02/19 23:40 01:54 02:06 Temperature 100.4 F H Pulse Rate 100 H 98 H Respiratory 18 Rate Blood Pressure 146/74 O2 Sat by Pulse 97 Oximetry 07/02/19 07/02/19 08:02 10:13 Temperature 99.3 F Pulse Rate 87 Respiratory 20 Rate Blood Pressure 150/75 O2 Sat by Pulse 97 96 Oximetry - Lab 07/02/19 04:08 07/02/19 05:08 Most recent lab results Calcium 8.9 mg/dL (8.4-10.2) 07/02/19 05:08 Medications & Allergies - Medications Allergies/Adverse Reactions: Allergies No Known Allergies Allergy (Verified 07/01/19 14:57) Home Medications: Home Medications Medication Instructions Recorded Confirmed Last Taken Type AtorvaSTATin [Lipitor] 40 mg PO QHS 07/01/19 07/01/19 06/30/19 History Benzonatate [Tessalon Perles] 100 mg PO Q8HR 07/01/19 07/01/19 06/30/19 History Insulin Glargine,Hum.rec.anlog 30 unit SQ QHS 07/01/19 07/01/19 06/30/19 History [Basaglar Kwikpen U-100] Metoprolol [Lopressor TAB] 50 mg PO BID 07/01/19 07/01/19 06/30/19 History NIFEdipine [Nifedipine ER] 60 mg PO BID 07/01/19 07/01/19 06/30/19 History Torsemide [Demadex] 40 mg PO QDAY 07/01/19 07/01/19 06/30/19 History Vit B Comp No.3/Folic/C/Biotin 1 each PO QDAY 07/01/19 07/01/19 06/30/19 History [Nephro-Doreen Rx Tablet] calcitrioL [Rocaltrol] 0.5 mcg PO QDAY 07/01/19 07/01/19 06/30/19 History Active Medications: Generic Name Dose Route Start Last Admin Trade Name Freq PRN Reason Stop Dose Admin Acetaminophen 650 mg 07/01/19 22:36 Tylenol PO Q4H PRN Pain MILD(1-3)/Fever >100.5/KENNEDY Sodium Chloride 100 mls @ 999 mls/hr 07/01/19 17:48 Nacl 0.9% IV SAGE PRN Hypotension Levofloxacin 250 mg 07/03/19 10:00 Levaquin PO QOD MELINDA Ondansetron HCl 4 mg 07/01/19 22:36 Zofran IV Q8H PRN Nausea And Vomiting Sodium Chloride 10 ml 07/02/19 10:00 07/02/19 09:54 Sodium Chloride Flush Syringe 10 Ml IV 10 ml BID MELINDA Administration Sodium Chloride 10 ml 07/01/19 22:36 Sodium Chloride Flush Syringe 10 Ml IV PRN PRN LINE FLUSH
[2019-07-02] MEDS ORDERED: SODIUM CHLORIDE 0.9% 100 ML IV PRN (11:05)
--- NOTE | 2019-07-02 13:08 | Discharge Summary ---
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 2.Continue routine hemodialysis Follow up with: PRIMARY CARE, [Primary Care Provider] - 3-5 Days
[2019-07-02 19:49] VITALS: BP 154/89
[2019-07-03] MEDS ORDERED: levoFLOXacin 250 MG TAB PO SCH (10:00)
== END 2019-07-02 18:00 | disposition home or self-care (01) ==
LOC: ED 11:41 → 3A 16:14 → 2B-ACE 17:22
PROVIDERS: ADMIT Internal Medicine; ATTEND Internal Medicine
DX: I12.0 Hypertensive chronic kidney disease with stage 5 chronic kidney disease or end stage renal disease (principal); E11.22 Type 2 diabetes mellitus with diabetic chronic kidney disease; N18.6 End stage renal disease; D63.1 Anemia in chronic kidney disease; E78.5 Hyperlipidemia, unspecified; E21.3 Hyperparathyroidism, unspecified; Z99.2 Dependence on renal dialysis; Z87.19 Personal history of other diseases of the digestive system; Z79.899 Other long term (current) drug therapy
CPT/HCPCS: 36415; 36430; 71045; 80048; 80053; 80074; 85007; 85025; 85027; 86850; 86900; 86901; 86920; 87040; 99284; G0378; J7030; J7040; P9016

== ENCOUNTER 2019-09-05 13:20 | Emergency (ER) | payer MEDICARE ==
--- NOTE | 2019-09-05 14:23 | Emergency Department Report ---
ED General Adult HPI - General Chief complaint: Arrhythmia/Palpitations Stated complaint: TACHYCARDIC Time Seen by Provider: 09/05/19 14:06 Source: patient, family, EMS ( EMS documentation not available at time of chart dictation ), RN notes reviewed, old records reviewed Mode of arrival: Stretcher Limitations: No Limitations - History of Present Illness Initial comments: Primary care doctor: Dr Nohemi Senior Nephrology: Dr Alba Past medical history: End-stage renal disease, on hemodialysis, Sunday, Sunday, Sunday, diabetes, hyperlipidemia, hypertension During the entire history and physical examination, 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 She reports that it was present for around 7 hours. It woke her up from sleep. She denies DVT and pulmonary embolism risk factors. She denies physical pain. She endorses compliance with her medications, and endorses that no new medication changes have been instituted. She is scheduled for dialysis today at 3:30 PM. She felt slightly nauseous, and reports vomiting 2 or 3 times, nonbloody, nonbilious, now resolved. At the moment, has no physical symptoms. On review of systems, she does admit to intermittently consuming decaffeinated coffee and tea. -: hour(s) Severity scale (0 -10): 0 Consistency: now resolved Improves with: none Worsens with: none Associated Symptoms: denies other symptoms - Related Data Home Medications Medication Instructions Recorded Confirmed Last Taken NIFEdipine [Nifedipine ER] 60 mg PO BID 07/01/19 09/05/19 09/05/19 Amiodarone [Cordarone 200 MG TAB] 200 mg PO DAILY 09/05/19 09/05/19 09/05/19 AtorvaSTATin [Lipitor] 40 mg PO QHS 09/05/19 09/05/19 09/05/19 Famotidine [Acid Controller] 20 mg PO DAILY 09/05/19 09/05/19 09/05/19 ISOSORBIDE MONOnitrate [Imdur ER] 60 mg PO QDAY 09/05/19 09/05/19 09/05/19 lisinopriL [Zestril TAB] 40 mg PO QDAY 09/05/19 09/05/19 09/05/19 Allergies Allergy/AdvReac Type Severity Reaction Status Date / Time No Known Allergies Allergy Verified 07/01/19 14:57 ED Review of Systems ROS: Stated complaint: TACHYCARDIC Other details as noted in HPI Constitutional: denies: fever Eyes: denies: eye discharge ENT: denies: congestion Respiratory: denies: wheezing Cardiovascular: palpitations. denies: syncope Gastrointestinal: nausea, vomiting Genitourinary: as per HPI. denies: dysuria Musculoskeletal: as per HPI Skin: as per HPI Neurological: as per HPI Psychiatric: as per HPI Hematological/Lymphatic: as per HPI ED Past Medical Hx - Past Medical History Previous Medical History?: Yes Hx Hypertension: Yes Hx Congestive Heart Failure: Yes Hx Diabetes: Yes Hx Renal Disease: Yes Additional medical history: ?heart condition. AFIB. PSVT - Surgical History Past Surgical History?: Yes Hx Breast Surgery: Yes Additional Surgical History: Peritoneal dialysis. right breast surgery, benign lump removal - Social History Smoking Status: Never Smoker Substance Use Type: None - Medications Home Medications: Home Medications Medication Instructions Recorded Confirmed Last Taken Type NIFEdipine [Nifedipine ER] 60 mg PO BID 07/01/19 09/05/19 09/05/19 History Amiodarone [Cordarone 200 MG TAB] 200 mg PO DAILY 09/05/19 09/05/19 09/05/19 History AtorvaSTATin [Lipitor] 40 mg PO QHS 09/05/19 09/05/19 09/05/19 History Famotidine [Acid Controller] 20 mg PO DAILY 09/05/19 09/05/19 09/05/19 History ISOSORBIDE MONOnitrate [Imdur ER] 60 mg PO QDAY 09/05/19 09/05/19 09/05/19 History lisinopriL [Zestril TAB] 40 mg PO QDAY 09/05/19 09/05/19 09/05/19 History ED Physical Exam - General Limitations: No Limitations General appearance: alert, in no apparent distress - Head Head exam: Present: atraumatic, normocephalic - Eye Eye exam: Present: normal appearance, EOMI. Absent: nystagmus - ENT ENT exam: Present: normal exam, normal orophraynx, mucous membranes moist, normal external ear exam - Neck Neck exam: Present: normal inspection, full ROM. Absent: tenderness, meningismus - Respiratory Respiratory exam: Present: normal lung sounds bilaterally. Absent: respiratory distress, wheezes, rales, rhonchi, stridor, chest wall tenderness - Cardiovascular Cardiovascular Exam: Present: regular rate, normal rhythm, normal heart sounds. Absent: bradycardia, tachycardia, irregular rhythm, systolic murmur, diastolic murmur, rubs, gallop - GI/Abdominal GI/Abdominal exam: Present: soft, normal bowel sounds. Absent: distended, tenderness, guarding, rebound, rigid, pulsatile mass - Extremities Exam Extremities exam: Present: normal inspection, full ROM, other (2+ pulses noted in the bilateral upper and lower extremities. There is no palpable cord. negative Homans sign. Muscular compartments are soft. The pelvis is stable.). Absent: pedal edema, calf tenderness - Back Exam Back exam: Present: normal inspection, full ROM. Absent: tenderness, CVA tenderness (R), CVA tenderness (L), paraspinal tenderness, vertebral tenderness - Neurological Exam Neurological exam: Present: alert, oriented X3, normal gait, other (There is no facial droop. The tongue is midline. Extraocular movements are intact bilaterally. There is 5 out of 5 strength in bilateral upper and lower extremities. Sensation is intact to light touch bilateral upper and lower extremities. There is a normal gait.). Absent: motor sensory deficit - Psychiatric Psychiatric exam: Present: normal affect, normal mood - Skin Skin exam: Present: warm, dry, intact, normal color, other (There is no redness, pus or streaking over the right thoracic wall. There is a dialysis access catheter noted. There is no redness, pus or streaking.). Absent: rash ED Course Vital Signs 09/05/19 09/05/19 14:03 14:07 Temperature 98.7 F Pulse Rate 92 H 97 H Respiratory 17 17 Rate Blood Pressure 169/93 Blood Pressure 169/93 [Left] O2 Sat by Pulse 97 97 Oximetry - Reevaluation(s) Reevaluation #1: 09/05/19 14:40 Differential diagnosis, including but not limited to: Palpitations, now resolved, arrhythmia, anemia, electrolyte derangement, thyroid derangement Assessment and plan: 69-year-old female with complaint of painless palpitations. She is afebrile with reassuring vital signs, she is not tachycardic, tachypneic or hypoxic, she denies DVT and pulmonary embolism risk factors, and she is low risk by Wells criteria. She had a cardiac catheterization performed in 2017 which showed mild nonobstructive luminal irregularities, and her EKG today is morphologically unchanged from prior EKG. She is not having symptoms at the moment. We have recommended screening laboratory studies, x-ray the chest and observation. We will reassess after her data points have resulted. Reevaluation #2: 09/05/19 16:41 Heart rate in the 70s. No acute distress. Labs unremarkable. Patient resting comfortably, and in no acute distress. She is not having any symptoms at this time. 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 As a courtesy, we are going to do that. Reevaluation #3: 09/05/19 17:26 Discussed with Kiah at patient's dialysis center, patient has chair time for 11:00 tomorrow morning. Hypertension reviewed and appreciated, this is chronic. Please reference the [employer] clinical policy on hypertension which is not acutely symptomatic. ED Medical Decision Making - Lab Data Result diagrams: 09/05/19 14:40 09/05/19 14:40 Vital Signs 09/05/19 09/05/19 14:03 14:07 Temperature 98.7 F Pulse Rate 92 H 97 H Respiratory 17 17 Rate Blood Pressure 169/93 Blood Pressure 169/93 [Left] O2 Sat by Pulse 97 97 Oximetry - EKG Data -: EKG Interpreted by Ok EKG shows normal: sinus rhythm Rate: normal - EKG Data 09/05/19 14:41 Sinus rhythm, 82 bpm, normal axis, QTC 465 ms, motion artifact, low voltage in the lateral leads. The EKG is not consistent with ST elevation myocardial infarction. The EKG today appears to be grossly unchanged from prior EKG from [facility] ugust 2017. Not a STEMI. - Radiology Data Radiology results: report reviewed, image reviewed Print Report Referring Physician: WHITNEY MADDOX Patient Name: TARIK CASTRO Date of : 1950 Sex: Female Report Date: 2019-09-05 Report Status: Finalized Findings [facility] [address] [place] [address] XRay Report Signed Patient: TARIK CASTRO MR#: [id number] : 1950 Acct:[id number] Age/Sex: 69 / F ADM Date: 09/05/19 Loc: ED Attending Dr: Ordering Physician: WHITNEY MADDOX MD Date of Service: 09/05/19 Procedure(s): XR chest 1V ap Accession Number(s): [id number] cc: WHITNEY MADDOX MD Fluoro Time In Minutes: CHEST 1 VIEW INDICATION / CLINICAL INFORMATION: esrd palpitation s n/v. COMPARISON: 07/01/2019 FINDINGS: SUPPORT DEVICES: Venous access catheter remains positioned in the superior vena cava. HEART / MEDIASTINUM: No signific ant abnormality. LUNGS / PLEURA: Linear densities are again identified in the right lower lung consistent with subsegmental atelectasis. There may be a small right pleural effusion as well. No pneumothorax. ADDITIONAL FINDINGS: No significant additional findings. IMPRESSION: 1. Atelectasis/pleural effusion in the right lower hemithorax. Signer Name: Joss White MD Signed: 09/05/2019 2:57 PM Workstation Name: [id number] Transcribed By: [place] Dictated By: Joss White MD Electronically Authenticated By: Joss White MD Signed Date/Time: 09/05/19 1457 DD/ 1455 Critical care attestation.: If time is entered above; I have spent that time in minutes in the direct care of this critically ill patient, excluding procedure time. ED Disposition Clinical Impression: ESRD (end stage renal disease) on dialysis, History of palpitations Disposition: DC-01 TO HOME OR SELFCARE Is pt being admited?: No Does the pt Need Aspirin: No Condition: Stable Additional Instructions: Please continue current outpatient medications. Follow-up tomorrow, September 06, 2019 at 11:00 in the morning, for dialysis chair time. Please return to the emergency room right away with new, worsened or different symptoms, or symptoms not present on the initial emergency room evaluation. Patient was found to have elevated blood pressure while here in the emergency room, this should be followed up by her primary care doctor or retail bakery manager within the next month. Long-term complications of hypertension and elevated blood pressure include stroke, heart attack, disability, paralysis, loss of quality of life. Referrals: EMGREGORYFE,KALEIGH I, MD [Staff Physician] - 3-5 Days
--- NOTE | 2019-09-05 15:01 | XRay Report ---
CHEST 1 VIEW INDICATION / CLINICAL INFORMATION: esrd palpitation s n/v. COMPARISON: 07/01/2019 FINDINGS: SUPPORT DEVICES: Venous access catheter remains positioned in the superior vena cava. HEART / MEDIASTINUM: No significant abnormality. LUNGS / PLEURA: Linear densities are again identified in the right lower lung consistent with subsegm ental atelectasis. There may be a small right pleural effusion as well. No pneumothorax. ADDITIONAL FINDINGS: No significant additional findings. IMPRESSION: 1. Atelectasis/pleural effusion in the right lower hemithorax. Signer Name: Joss White MD Signed: 09/05/2019 2:57 PM Workstation Name: [id number]
[2019-09-05 15:13] LABS: INR 1.08 (0.87-1.13)
[2019-09-05 15:16] LABS: Mean Corpuscular HGB Conc 30 % (30-34); Mean Corpuscular Volume 78 fl (79-97); Platelet Count 234 K/mm3 (140-440); Red Blood Count 4.81 M/mm3 (3.65-5.03)
[2019-09-05 15:17] LABS: Alanine Aminotransferase 34 units/L (7-56); Albumin 3.6 g/dL (3.9-5); BUN/Creatinine Ratio 4; Blood Urea Nitrogen 23 mg/dL (7-17)
[2019-09-05 15:18] LABS: Hemoglobin 11.2 gm/dl (10.1-14.3)
[2019-09-05 15:19] LABS: Hematocrit 37.4 % (30.3-42.9); Red Cell Distribution Width 29.8 % (13.2-15.2)
[2019-09-05 15:29] LABS: Calcium 8.7 mg/dL (8.4-10.2)
[2019-09-05 18:36] VITALS: BP 163/81
== END 2019-09-05 19:03 | disposition home or self-care (01) ==
LOC: ED 13:20
DX: E13.22 Other specified diabetes mellitus with diabetic chronic kidney disease (principal); I13.2 Hypertensive heart and chronic kidney disease with heart failure and with stage 5 chronic kidney disease, or end stage renal disease; I50.9 Heart failure, unspecified; N18.6 End stage renal disease; Z99.2 Dependence on renal dialysis; Z98.890 Other specified postprocedural states; Z79.899 Other long term (current) drug therapy
CPT/HCPCS: 36415; 71045; 80053; 82550; 83735; 84443; 85027; 85610; 93005; 93010